=== PATIENT | male | born 1960 | race Caucasian/White ===

== ENCOUNTER → 2019-10-09 08:40 | Outpatient (BNVA) | payer OTHER, SELFPAY | PROVIDERS: Family Provider Family Medicine; PCP Family Medicine; Visit Provider Urology | DX: N40.0 Benign prostatic hyperplasia without lower urinary tract symptoms (principal); Z80.42 Family history of malignant neoplasm of prostate | CPT/HCPCS: 81001 ==

== ENCOUNTER 2022-02-15 08:19 | Outpatient (CLI) | payer OTHER, SELFPAY | END 2022-02-15 08:20 | disposition home or self-care (01) | PROVIDERS: PCP Family Medicine; Visit Provider Nurse Practitioner Family | DX: R10.9 Unspecified abdominal pain (principal) | CPT/HCPCS: 74018; 81003 ==

== ENCOUNTER 2022-03-17 09:30 | Outpatient (CLI) | payer OTHER, SELFPAY ==
[2022-03-17 10:13] LABS: PSA Screen - Urology 1.09 ng/mL (0-4)
== END 2022-03-17 09:31 | disposition home or self-care (01) ==
LOC: LAB 09:33
PROVIDERS: Nurse Practitioner Family; PCP Family Medicine; Visit Provider Urology
DX: Z12.5 Encounter for screening for malignant neoplasm of prostate (principal)
CPT/HCPCS: 36415; G0103

== ENCOUNTER → 2022-03-21 08:18 | Outpatient (BNVA) | payer OTHER, SELFPAY | PROVIDERS: PCP Family Medicine; Visit Provider Urology | DX: N40.1 Benign prostatic hyperplasia with lower urinary tract symptoms (principal); R35.1 Nocturia; N20.9 Urinary calculus, unspecified; M54.9 Dorsalgia, unspecified | CPT/HCPCS: 81003 ==

== ENCOUNTER 2022-09-22 08:08 | Outpatient (CLI) | payer OTHER, SELFPAY ==
--- NOTE | 2022-09-22 08:08 | XR_ITS ---
WS: [id number] Thoracic spine, 3 views, 09/22/2022 Clinical Data: pain Comparison: Thoracic spine, 09/21/2006. Findings: No compression fractures are seen. The disc heights are normal. There are osteophytes at all thoracic levels. The paravertebral regions are normal. XR/XR thoracic spine 3V* [id number] Impression: Moderate osteoarthritis of the thoracic vertebral bodies.
--- NOTE | 2022-09-22 08:08 | XR_ITS ---
WS: [email or web address] Lumbar spine, 3 views, 09/22/2022 Clinical Data: pain Comparison: Lateral lumbar spine views, 09/21/2006. Findings: No compression fractures or subluxation is seen. No disc space narrowing is seen. There is osteoarthr itic spurring of all the lumbar vertebral bodies. The transverse processes and SI joints are normal. XR/XR lumbar spine 2-3V* [id number] Impression: Moderate osteoarthritis of the lumbar vertebral bodies.
--- NOTE | 2022-09-22 08:08 | XR_ITS ---
WS: [email or web address] Cervical spine, 3 views, 09/22/2022 Clinical Data: pain Comparison: None. Findings: No compression fractures are seen. There is disc space narrowing at C6-C7. There is anterio r osteoarthritic spurring from C4 through C7. There is no prevertebral soft tissue swelling. The odon toid is unremarkable. The soft tissues of the neck and the lung apices are normal. XR/XR cervical spine 3V* [id number] Impression: Osteoarthritis C4-C7 disc space narrowing at C6-C7.
--- NOTE | 2022-09-22 08:08 | XR_ITS ---
WS: [email or web address] Left knee, AP and lateral views, 09/22/2022 Clinical Data: pain Comparison: None. Findings: No fractures or dislocations are seen. There is minimal medial joint compartment narrowing. The martinez la shows superior spurring. The soft tissues are unremarkable. XR/XR knee LT 1-2V [id number] Impression: Minimal osteoarthritis of the left knee Kellgren-Everardo Classification: grade 1 (doubtful): doubtful joint space narr owing and possible osteophytic lipping
--- NOTE | 2022-09-22 08:18 | XR_ITS ---
WS: [email or web address] Right knee, AP and lateral views, 09/22/2022 Clinical Data: PAIN Comparison: None. Findings: No fractures or dislocations are seen. There is mild narrowing of the medial joint compartment. The p atella shows minimal spurring.. The soft tissues are unremarkable. XR/XR knee RT 1-2V [id number] Impression: Minimal medial joint compartment narrowing and patellar spurring of the right k nee. Kellgren-Everardo Classification: grade 1 (doubtful): doubtful joint space narr owing and possible osteophytic lipping
== END 2022-09-22 08:09 | disposition home or self-care (01) ==
PROVIDERS: PCP Family Medicine; Visit Provider Family Medicine
DX: M25.561 Pain in right knee (principal); M47.814 Spondylosis without myelopathy or radiculopathy, thoracic region; M47.816 Spondylosis without myelopathy or radiculopathy, lumbar region; M47.812 Spondylosis without myelopathy or radiculopathy, cervical region; M17.12 Unilateral primary osteoarthritis, left knee
CPT/HCPCS: 72040; 72072; 72100; 73560

== ENCOUNTER → 2022-12-12 11:43 | Outpatient (BNVA) | payer OTHER, SELFPAY | PROVIDERS: PCP Family Medicine; Visit Provider Family Medicine | DX: M19.90 Unspecified osteoarthritis, unspecified site (principal) | CPT/HCPCS: 80053; 85025; 85651; 86140; 86160; 86162; 86235; 86255; 86376; 86431 ==

== ENCOUNTER → 2023-03-15 12:42 | Outpatient (BNVA) | payer OTHER, SELFPAY | PROVIDERS: PCP Family Medicine; Visit Provider Family Medicine | DX: E03.9 Hypothyroidism, unspecified (principal); R00.0 Tachycardia, unspecified; R53.83 Other fatigue; R76.8 Other specified abnormal immunological findings in serum; M19.90 Unspecified osteoarthritis, unspecified site | CPT/HCPCS: 80053; 84443; 85025; 85651; 86140 ==

== ENCOUNTER → 2023-03-22 11:52 | Outpatient (BNVA) | payer OTHER, SELFPAY | PROVIDERS: PCP Family Medicine; Visit Provider Family Medicine | DX: D64.9 Anemia, unspecified (principal) | CPT/HCPCS: 82728; 83540; 83550; 85045 ==

== ENCOUNTER → 2023-04-26 08:55 | Outpatient (BNVA) | payer OTHER, SELFPAY | PROVIDERS: PCP Family Medicine; Visit Provider Internal Medicine Rheumatology | DX: R76.8 Other specified abnormal immunological findings in serum (principal); Z79.899 Other long term (current) drug therapy; M19.90 Unspecified osteoarthritis, unspecified site; Z11.59 Encounter for screening for other viral diseases; Z11.1 Encounter for screening for respiratory tuberculosis; R53.83 Other fatigue; D50.9 Iron deficiency anemia, unspecified; Z79.52 Long term (current) use of systemic steroids | CPT/HCPCS: 36415; 80076; 82306; 82565; 82728; 83010; 83615; 85025; 85651; 86023; 86140; 86160; 86200; 86480; 86704; 86803; 87340; 99204 ==

== ENCOUNTER → 2023-06-27 12:54 | Outpatient (BNVA) | payer OTHER, SELFPAY | PROVIDERS: PCP Family Medicine; Visit Provider Internal Medicine Rheumatology | DX: D50.9 Iron deficiency anemia, unspecified (principal); M19.90 Unspecified osteoarthritis, unspecified site; Z79.899 Other long term (current) drug therapy; M47.812 Spondylosis without myelopathy or radiculopathy, cervical region; M47.816 Spondylosis without myelopathy or radiculopathy, lumbar region; R76.8 Other specified abnormal immunological findings in serum; R53.83 Other fatigue | CPT/HCPCS: 99214 ==

== ENCOUNTER 2023-12-04 14:13 | Outpatient (CLI) | payer OTHER, SELFPAY ==
[2023-12-04 14:52] LABS: Basophils % 0.1 %; Eosinophils % 0.4 %; Hematocrit 38.1 % (37-53); Lymphocytes # 0.8 10^3/uL (0.8-4.8); Lymphocytes % 11.1 %; Mean Corpuscular Hemoglobin 27.2 pg (27-33); Mean Corpuscular Volume 87.8 fl (82-101); Mean Platelet Volume 9.4 fL (7.4-10.4); Monocytes # 0.3 10^3/uL (0.2-0.9); Monocytes % 3.6 %; Neutrophils # 5.93 10^3/uL (1.8-7.7); Neutrophils % 84.5 %; Nucleated Red Blood Cells % 0 %; Platelet Count 302 10^3/cmm (157-399); Red Blood Count 4.34 10^6/uL (3.85-5.65); Red Cell Distribution Width 13.2 % (12.1-15.1); White Blood Count 7.02 10^3/uL (3.29-11.43)
[2023-12-04 15:32] LABS: Carcinoembryonic Antigen 1.1 ng/mL (0.0-4.7)
[2023-12-04 15:44] LABS: Alanine Aminotransferase 12 U/L (0-41); Albumin Level 3.9 g/dL (3.5-5.2); Alkaline Phosphatase 74 U/L (40-130); Aspartate Amino Transferase 15 U/L (0-40); Blood Urea Nitrogen 24 mg/dL (8-23); Calcium 8.8 mg/dL (8.5-10.5); Carbon Dioxide 23 mmol/L (22-29); Chloride 109 mmol/L (98-107); Globulin 2.4 g/dL (1.3-4.6); Glomerular Filtration Rate 85.2 mL/min (90-130); Glucose 147 mg/dL (65-115); Osmolality Calculated 303 mOsm/kg (285-295); Sodium 143 mmol/L (136-145); Total Bilirubin 0.4 mg/dL (0.15-1.2); Total Protein 6.3 g/dL (6.6-8.7)
[2023-12-04 16:37] LABS: Anion Gap 14.8 (5-19); Potassium 3.8 mmol/L (3.5-5.1)
== END 2023-12-04 14:14 | disposition home or self-care (01) ==
LOC: LAB 14:16
PROVIDERS: PCP Family Medicine; Visit Provider Internal Medicine
DX: C18.2 Malignant neoplasm of ascending colon (principal)
CPT/HCPCS: 36415; 80053; 82378; 85025

== ENCOUNTER 2024-03-11 12:58 | Outpatient (CLI) | payer OTHER, SELFPAY ==
--- NOTE | 2024-03-11 13:30 | PETR_ITS ---
PROCEDURE INFORMATION: Exam: PET/CT Skull Base to Mid-thigh Exam date and time: 03/11/2024 1:51 PM Age: 64 years old Clinical indication: Condition or disease; Prior surgery; Surgery date: 6+ months; Surgery type: Colon appy; Additional info: Colon cancer; Pulmonary nodules LABS AND CLINICAL REPORTS: Glucose: 70 mg/dl Treatment strategy for malignancy (PET staging): Initial Staging (PI) TECHNIQUE: Imaging protocol: Following at least four-hour fasting and following the injection of radiopharmaceutical, low dose CT images were obtained. Then, PET images were obtained. Attenuation corrected images were constructed using the CT scan. Fused images of PET and CT were reviewed. The standardized uptake values (SUV) reported below are maximum values within a region of interest, expressed in gm/ml. Exam includes orbital meatal line to mid-thigh. Radiopharmaceutical: 13.1 mCi F-18 FDG (Fluorodeoxyglucose), IV. Time of imaging post radiopharmaceutical administration: 58 minutes Injection site: Left antecubital COMPARISON: 1. CT kidney stone [id number] 06/18/2017 12:[address] chest w con* [id number] 03/04/2024 8:45 AM FINDINGS: Tubes, catheters and devices: Right chest port terminates at the superior cavoatrial junction. Brain: Visualized brain has normal physiologic uptake. Paranasal sinuses: Near complete opacification of the right maxillary sinus with FDG uptake showing SUV max of 4.1. Pharynx: No abnormal uptake. Larynx: No abnormal uptake. Lungs, pleura and trachea: Redemonstrated bilateral solid noncalcified pulmonary nodules, to include basal right lower lobe nodule averaging 12 mm (SUV max of 2.0) and basal left lower lobe nodule averaging 10 mm (SUV max of 1.6) as well as stable area of non FDG avid left upper lobe tree-in-bud nodularity. Bilateral calcified granulomata. No consolidation, masses, or pleural effusion. Heart: Normal physiologic uptake. Mediastinal space: No abnormal uptake. Liver: No abnormal uptake. Gallbladder and biliary ducts: No abnormal uptake. Pancreas: No abnormal uptake. Spleen: No abnormal uptake. Adrenal glands: No abnormal uptake. Kidneys and ureters: Normal physiologic uptake. Photopenic fluid density left renal cyst. Stomach and bowel: Partial right colectomy with mild relative thickening and mild stranding at the remaining right colon. Diffuse FDG uptake along the colon without discrete mass on CT, greatest of the remaining right colon. Reproductive: Homogeneous right testicular FDG uptake showing SUV max of 4.[address] abnormality. Asymmetrically small non FDG avid soft tissue density at the left scrotum. Mild prostatomegaly. Vasculature: No abnormal uptake. Lymph nodes: Right retrocrural lymph node measuring 5 mm in the short axis shows low-level FDG uptake showing SUV max of 2.9, previously 2 mm in the short axis in June 2017. Calcified mediastinal and bilateral hilar lymph nodes in keeping with sequela of old granulomatous disease. Skeleton: Degenerative changes along the spine. Low-level uptake at the right acromioclavicular joint in keeping with underlying mild degenerative change on CT. Soft tissues: No abnormal uptake in the visualized head, neck, chest, abdomen, pelvis, and extremities. Left teres major intramuscular lipoma. Anterior abdominal wall postsurgical change. Small fat containing right inguinal hernia. PET/PET skull to thigh INIT [id number] IMPRESSION: 1. Partial right colectomy with mild relative thickening, adjacent stranding, and colonic FDG uptake greatest at the remaining right colon possibly representing postsurgical change. Infectious, inflammatory or neoplastic process not entirely excluded. Correlate with clinical findings and surgical history. 2. Diffuse colonic FDG uptake greatest at the right colon. Query metformin use. 3. Bilateral pulmonary nodules averaging 12 mm at the basal right lower lobe and 10 mm at the basal left lower lobe show very low-level FDG uptake. These are nonspecific, but could represent metastases. 4. Low-level FDG uptake at subcentimeter right retrocrural lymph node increased in size compared to 2017 also raises possibility of metastasis. 5. Infectious/inflammatory right maxillary sinusitis. 6. Homogeneous right testicular FDG uptake may be physiologic with asymmetrically small non FDG avid soft tissue density in the left scrotum possibly representing atrophy. Right orchitis could appear similar. Correlate with clinical history and exam, and consideration for scrotal ultrasound as indicated.
== END 2024-03-11 12:59 | disposition home or self-care (01) ==
PROVIDERS: PCP Family Medicine; Visit Provider Internal Medicine Medical Oncology
DX: C18.2 Malignant neoplasm of ascending colon (principal); J84.10 Pulmonary fibrosis, unspecified; R93.3 Abnormal findings on diagnostic imaging of other parts of digestive tract; R93.811 Abnormal radiologic findings on diagnostic imaging of right testicle; D17.22 Benign lipomatous neoplasm of skin and subcutaneous tissue of left arm; J01.00 Acute maxillary sinusitis, unspecified; K40.90 Unilateral inguinal hernia, without obstruction or gangrene, not specified as recurrent; Z95.828 Presence of other vascular implants and grafts; Z90.49 Acquired absence of other specified parts of digestive tract
CPT/HCPCS: 78815; A9552

== ENCOUNTER 2024-03-14 11:00 | Oncology outpatient (recurring) (ONCR) | payer OTHER, SELFPAY ==
--- NOTE | 2024-03-04 08:00 | CT_ITS ---
WS: [email or web address] CT chest w con* [id number] HISTORY: colon cancer TECHNIQUE: Axial imaging performed through the thorax. Coronal and sagittal reformats are submitted. [facility] use at least one of these dose optimization techniques: automated exposure control; mA and/or kV adjustment per patient size (includes targeted exams where dose is mat ched to clinical indication); or iterative reconstruction. CONTRAST: Omnipaque 350; 100 mL IV. DLP: 617.95 mGy.cm COMPARISON: CT of the lung bases 06/18/2017 Lungs and central airway: Bilateral noncalcified pulmonary nodules are identified. The largest nodule s are at the lung bases. RIGHT lower lobe pulmonary nodule measures 12 mm. 10 mm noncalcified nodule in the anterior LEFT lower lobe. There are a few additional smaller scattered nodules throughout both lungs. There is a pulmonary nodule measuring 9 mm in the medial LEFT infrahilar region, image 39 of series 4. Pleura: Normal. No pleural effusion. Heart and pericardium: Normal size heart with no pericardial effusion. Mediastinum and gaurang: Small mediastinal and hilar lymph nodes. No definite adenopathy identified. Vessels: Mild atherosclerosis aorta. Normal size pulmonary artery. Chest wall and lower neck: No soft tissue masses. Benign intramuscular lipoma is noted in the soft ti ssues of the LEFT shoulder. Upper abdomen: Mild hepatic steatosis. No metastatic lesions within the liver. No adrenal mass. Osseous structures: Mild increase in thoracic kyphosis. CT/CT chest w con* [id number] IMPRESSION: 1. Bilateral pulmonary nodules. The largest nodule is 12 mm in the RIGHT lower lobe. There are additional scattered pulmonary nodules as described above. Met astatic disease is not excluded. These nodules were not present at the lung bas es in 2017. Consider follow-up PET/CT imaging or 3-month chest CT follow-up wit h IV contrast. 2. No adenopathy. 3. No metastatic disease visualized within the liver or adrenal glands.
[2024-03-04 08:22] LABS: Blood Urea Nitrogen 29 mg/dL (8-23); Glomerular Filtration Rate 67.4 mL/min (90-130)
[2024-03-04] MEDS: iohexol 350 mg/mL 500 mL Btl (per mL) IV (08:56)
[2024-03-12 09:29] LABS: Basophils % 0.4 %; Eosinophils # 0.2 10^3/uL (0.0-0.8); Eosinophils % 1.8 %; Hematocrit 47.6 % (37-53); Lymphocytes # 1.6 10^3/uL (0.8-4.8); Mean Corpuscular HGB Conc 31.3 g/dL (30-55); Mean Corpuscular Hemoglobin 26.9 pg (27-33); Mean Corpuscular Volume 85.9 fl (82-101); Mean Platelet Volume 9.8 fL (7.4-10.4); Monocytes # 0.7 10^3/uL (0.2-0.9); Monocytes % 8.5 %; Neutrophils # 5.61 10^3/uL (1.8-7.7); Neutrophils % 68.9 %; Nucleated Red Blood Cells % 0 %; Platelet Count 258 10^3/cmm (157-399); Red Blood Count 5.54 10^6/uL (3.85-5.65); Red Cell Distribution Width 16.9 % (12.1-15.1); White Blood Count 8.14 10^3/uL (3.29-11.43)
[2024-03-12 09:55] LABS: Carcinoembryonic Antigen 1.4 ng/mL (0.0-4.7)
[2024-03-12 10:07] LABS: Alanine Aminotransferase 13 U/L (0-41); Albumin Level 4.1 g/dL (3.5-5.2); Alkaline Phosphatase 86 U/L (40-130); Aspartate Amino Transferase 12 U/L (0-40); Blood Urea Nitrogen 33 mg/dL (8-23); Carbon Dioxide 23 mmol/L (22-29); Chloride 105 mmol/L (98-107); Globulin 2.7 g/dL (1.3-4.6); Glucose 100 mg/dL (65-115); Osmolality Calculated 299 mOsm/kg (285-295); Sodium 141 mmol/L (136-145); Total Bilirubin 0.3 mg/dL (0.15-1.2); Total Protein 6.8 g/dL (6.6-8.7)
[2024-03-12 10:09] LABS: Anion Gap 17.2 (5-19); Potassium 4.2 mmol/L (3.5-5.1)
[2024-03-12 11:00] LABS: Iron 220 ug/dL (59-158); Percent Saturation 78.5 % (20-50); Total Iron Binding Capacity 280 mcg/dl; Unsaturated Iron Binding 60 ug/dL (112-347)
[2024-03-12] MEDS: dextrose 5% 250 ML 75 ML IV (11:13)
[2024-03-12] MEDS: palonosetron 0.25 mg/5 mL SDV IVP (11:16)
[2024-03-12] MEDS: dexamethasone 4 mg/mL INJ 5 mL 12 MG IVP (11:19)
[2024-03-12] MEDS: LEUCOVORIN IV (12:03)
[2024-03-12] MEDS: OXALIPLATIN IV (12:03)
[2024-03-12] MEDS: DEXTROSE 5% IV ×2 (12:03)
[2024-03-12] MEDS: FLUOROURACIL IV (14:44)
[2024-03-12] MEDS: SODIUM CHLORIDE IV (14:44)
[2024-03-12] MEDS: ELASTOMERIC PUMP PUMP IV (14:44)
[2024-03-12 14:53] VITALS: BP 156/79; PULSE 70; TEMP 36.2; O2SAT 93
[2024-03-14 11:02] VITALS: BP 151/80; PULSE 64; RESP 18; TEMP 36.7; O2SAT 95
== END 2024-03-16 23:59 | disposition home or self-care (01) ==
PROVIDERS: PCP Family Medicine; Visit Provider Internal Medicine Medical Oncology
DX: Z45.1 Encounter for adjustment and management of infusion pump (principal); Z53.9 Procedure and treatment not carried out, unspecified reason
CPT/HCPCS: 71260; 80053; 82378; 82565; 83540; 83550; 84520; 85025; 96368; 96375; 96413; 96415; 96416; 96523; J0640; J1100; J2469; J7060; J9190; J9263; Q9967

== ENCOUNTER 2024-04-11 10:10 | Oncology outpatient (recurring) (ONCR) | payer OTHER, SELFPAY ==
[2024-03-19 14:39] LABS: Basophils % 0.4 %; Eosinophils # 0.1 10^3/uL (0.0-0.8); Eosinophils % 1.4 %; Hematocrit 45.6 % (37-53); Lymphocytes # 0.9 10^3/uL (0.8-4.8); Lymphocytes % 16.7 %; Mean Corpuscular HGB Conc 32.5 g/dL (30-55); Mean Corpuscular Hemoglobin 27.8 pg (27-33); Mean Corpuscular Volume 85.6 fl (82-101); Mean Platelet Volume 9.5 fL (7.4-10.4); Monocytes # 0.3 10^3/uL (0.2-0.9); Monocytes % 5.3 %; Neutrophils # 3.87 10^3/uL (1.8-7.7); Nucleated Red Blood Cells % 0 %; Platelet Count 213 10^3/cmm (157-399); Red Blood Count 5.33 10^6/uL (3.85-5.65); Red Cell Distribution Width 16.4 % (12.1-15.1); White Blood Count 5.09 10^3/uL (3.29-11.43)
[2024-03-19 14:47] LABS: Alanine Aminotransferase 39 U/L (0-41); Alkaline Phosphatase 81 U/L (40-130); Aspartate Amino Transferase 19 U/L (0-40); Blood Urea Nitrogen 30 mg/dL (8-23); Calcium 9.1 mg/dL (8.5-10.5); Carbon Dioxide 26 mmol/L (22-29); Chloride 106 mmol/L (98-107); Globulin 2.7 g/dL (1.3-4.6); Glomerular Filtration Rate 67.4 mL/min (90-130); Glucose 117 mg/dL (65-115); Osmolality Calculated 301 mOsm/kg (285-295); Sodium 142 mmol/L (136-145); Total Bilirubin 0.3 mg/dL (0.15-1.2); Total Protein 6.7 g/dL (6.6-8.7)
[2024-03-19 14:49] LABS: Anion Gap 14.2 (5-19); Potassium 4.2 mmol/L (3.5-5.1)
[2024-03-26 08:47] LABS: Basophils % 0.4 %; Eosinophils # 0.2 10^3/uL (0.0-0.8); Eosinophils % 3.1 %; Hematocrit 45.4 % (37-53); Lymphocytes # 1.6 10^3/uL (0.8-4.8); Lymphocytes % 32.9 %; Mean Corpuscular HGB Conc 31.7 g/dL (30-55); Mean Corpuscular Hemoglobin 27.3 pg (27-33); Mean Corpuscular Volume 86.1 fl (82-101); Mean Platelet Volume 9.4 fL (7.4-10.4); Monocytes # 0.4 10^3/uL (0.2-0.9); Monocytes % 8.3 %; Neutrophils # 2.64 10^3/uL (1.8-7.7); Neutrophils % 55.1 %; Nucleated Red Blood Cells % 0 %; Platelet Count 185 10^3/cmm (157-399); Red Blood Count 5.27 10^6/uL (3.85-5.65); Red Cell Distribution Width 17.2 % (12.1-15.1)
[2024-03-26 09:10] LABS: Alanine Aminotransferase 20 U/L (0-41); Albumin Level 3.9 g/dL (3.5-5.2); Alkaline Phosphatase 75 U/L (40-130); Blood Urea Nitrogen 33 mg/dL (8-23); Calcium 8.6 mg/dL (8.5-10.5); Carbon Dioxide 25 mmol/L (22-29); Chloride 106 mmol/L (98-107); Globulin 2.4 g/dL (1.3-4.6); Glomerular Filtration Rate 75.2 mL/min (90-130); Glucose 113 mg/dL (65-115); Osmolality Calculated 302 mOsm/kg (285-295); Sodium 142 mmol/L (136-145); Total Bilirubin 0.3 mg/dL (0.15-1.2); Total Protein 6.3 g/dL (6.6-8.7)
[2024-03-26 09:47] LABS: Anion Gap 14.7 (5-19); Aspartate Amino Transferase 20 U/L (0-40); Potassium 3.7 mmol/L (3.5-5.1)
[2024-03-26] MEDS: dextrose 5% 250 ML 35 ML IV (10:58)
[2024-03-26] MEDS: palonosetron 0.25 mg/5 mL SDV IVP (11:00)
[2024-03-26] MEDS: dexamethasone 4 mg/mL INJ 5 mL 12 MG IV (11:08)
[2024-03-26] MEDS: LEUCOVORIN IV (11:58)
[2024-03-26] MEDS: DEXTROSE 5% IV ×2 (11:58→11:59)
[2024-03-26] MEDS: OXALIPLATIN IV (11:59)
[2024-03-26 14:31] VITALS: BP 163/84; PULSE 66; TEMP 36.2
[2024-03-26] MEDS: ELASTOMERIC PUMP PUMP IV (14:39)
[2024-03-26] MEDS: FLUOROURACIL IV (14:39)
[2024-03-26] MEDS: SODIUM CHLORIDE IV (14:39)
[2024-03-28 11:00] VITALS: BP 156/89; PULSE 57; RESP 16; TEMP 36.7; O2SAT 94
[2024-04-09 10:27] LABS: Basophils % 0.3 %; Eosinophils # 0.1 10^3/uL (0.0-0.8); Eosinophils % 1.9 %; Hematocrit 44.3 % (37-53); Lymphocytes # 1.3 10^3/uL (0.8-4.8); Lymphocytes % 22.7 %; Mean Corpuscular HGB Conc 32.5 g/dL (30-55); Mean Corpuscular Hemoglobin 27.7 pg (27-33); Mean Corpuscular Volume 85.2 fl (82-101); Mean Platelet Volume 9.7 fL (7.4-10.4); Monocytes # 0.7 10^3/uL (0.2-0.9); Monocytes % 11.1 %; Neutrophils # 3.74 10^3/uL (1.8-7.7); Neutrophils % 63.8 %; Nucleated Red Blood Cells % 0 %; Platelet Count 181 10^3/cmm (157-399); Red Cell Distribution Width 17.1 % (12.1-15.1); White Blood Count 5.86 10^3/uL (3.29-11.43)
[2024-04-09 10:40] LABS: Alanine Aminotransferase 21 U/L (0-41); Albumin Level 3.7 g/dL (3.5-5.2); Alkaline Phosphatase 76 U/L (40-130); Anion Gap 13.7 (5-19); Aspartate Amino Transferase 15 U/L (0-40); Blood Urea Nitrogen 24 mg/dL (8-23); Calcium 8.5 mg/dL (8.5-10.5); Carbon Dioxide 25 mmol/L (22-29); Chloride 108 mmol/L (98-107); Creatinine Clr Calc Pharmacy 95.4936; Globulin 2.5 g/dL (1.3-4.6); Glomerular Filtration Rate 75.2 mL/min (90-130); Glucose 117 mg/dL (65-115); Osmolality Calculated 301 mOsm/kg (285-295); Potassium 3.7 mmol/L (3.5-5.1); Sodium 143 mmol/L (136-145); Total Bilirubin 0.4 mg/dL (0.15-1.2); Total Protein 6.2 g/dL (6.6-8.7)
[2024-04-09 11:45] VITALS: BP 165/79; PULSE 61; RESP 16; TEMP 36.4; O2SAT 92
[2024-04-09] MEDS: dextrose 5% 250 ML 75 ML IV (11:47)
[2024-04-09] MEDS: palonosetron 0.25 mg/5 mL SDV IVP (11:47)
[2024-04-09] MEDS: dexamethasone 4 mg/mL INJ 5 mL 12 MG IV (11:48)
[2024-04-09] MEDS: sodium chloride 0.9% 500 ML 999 ML IV (12:24)
[2024-04-09] MEDS: DEXTROSE 5% IV ×2 (13:10→13:11)
[2024-04-09] MEDS: LEUCOVORIN IV (13:10)
[2024-04-09] MEDS: OXALIPLATIN IV (13:11)
[2024-04-09 15:20] VITALS: BP 172/92; PULSE 63; RESP 16; TEMP 36.1; O2SAT 95
[2024-04-09] MEDS: FLUOROURACIL IV (15:27)
[2024-04-09] MEDS: SODIUM CHLORIDE IV (15:27)
[2024-04-09] MEDS: ELASTOMERIC PUMP PUMP IV (15:27)
[2024-04-11 10:18] VITALS: BP 151/79; PULSE 86; RESP 16; TEMP 36.5; O2SAT 95
[2024-04-11] MEDS: sodium chloride 0.9% 1,000 ML 999 ML IV (10:41)
[2024-04-11 12:00] VITALS: BP 132/76; PULSE 80; RESP 16; TEMP 36.5; O2SAT 96
== END 2024-04-16 23:59 | disposition home or self-care (01) ==
PROVIDERS: Nurse Practitioner Family; PCP Family Medicine; Visit Provider Internal Medicine Medical Oncology
DX: Z53.9 Procedure and treatment not carried out, unspecified reason (principal); Z45.1 Encounter for adjustment and management of infusion pump
CPT/HCPCS: 36591; 80053; 85025; 96360; 96368; 96375; 96413; 96415; 96416; 96523; J0640; J1100; J2469; J7030; J7040; J7060; J9190; J9263

== ENCOUNTER 2024-05-09 11:15 | Oncology outpatient (recurring) (ONCR) | payer OTHER, SELFPAY ==
[2024-04-23 09:05] LABS: Basophils % 0.4 %; Eosinophils # 0.1 10^3/uL (0.0-0.8); Eosinophils % 1.7 %; Hematocrit 43.5 % (37-53); Lymphocytes # 1.4 10^3/uL (0.8-4.8); Lymphocytes % 26.5 %; Mean Corpuscular HGB Conc 33.1 g/dL (30-55); Mean Corpuscular Hemoglobin 28.3 pg (27-33); Mean Corpuscular Volume 85.5 fl (82-101); Mean Platelet Volume 9.1 fL (7.4-10.4); Monocytes # 0.6 10^3/uL (0.2-0.9); Monocytes % 11.7 %; Neutrophils # 3.13 10^3/uL (1.8-7.7); Neutrophils % 59.3 %; Nucleated Red Blood Cells % 0 %; Platelet Count 160 10^3/cmm (157-399); Red Blood Count 5.09 10^6/uL (3.85-5.65); Red Cell Distribution Width 17.9 % (12.1-15.1); White Blood Count 5.28 10^3/uL (3.29-11.43)
[2024-04-23 09:33] LABS: Carcinoembryonic Antigen 1.7 ng/mL (0.0-4.7)
[2024-04-23 09:44] LABS: Alanine Aminotransferase 23 U/L (0-41); Albumin Level 3.8 g/dL (3.5-5.2); Alkaline Phosphatase 72 U/L (40-130); Anion Gap 14.4 (5-19); Aspartate Amino Transferase 18 U/L (0-40); Blood Urea Nitrogen 22 mg/dL (8-23); Calcium 8.7 mg/dL (8.5-10.5); Carbon Dioxide 25 mmol/L (22-29); Chloride 110 mmol/L (98-107); Globulin 2.2 g/dL (1.3-4.6); Glomerular Filtration Rate 67.4 mL/min (90-130); Glucose 108 mg/dL (65-115); Osmolality Calculated 306 mOsm/kg (285-295); Potassium 3.4 mmol/L (3.5-5.1); Sodium 146 mmol/L (136-145); Total Bilirubin 0.4 mg/dL (0.15-1.2)
[2024-04-23 10:40] VITALS: BP 168/87; PULSE 56; RESP 16; TEMP 36.4; O2SAT 96
[2024-04-23] MEDS: dextrose 5% 250 ML 75 ML IV (10:48)
[2024-04-23] MEDS: palonosetron 0.25 mg/5 mL SDV IVP (10:49)
[2024-04-23] MEDS: dexamethasone 4 mg/mL INJ 5 mL 12 MG IVP (10:51)
[2024-04-23] MEDS: leucovorin 920 MG in dextrose 5% 250 ML 520 MG IV (11:18)
[2024-04-23] MEDS: ELASTOMERIC PUMP PUMP IV (12:01)
[2024-04-23] MEDS: FLUOROURACIL IV (12:01)
[2024-04-23] MEDS: SODIUM CHLORIDE IV (12:01)
[2024-04-23 12:34] VITALS: BP 173/91; PULSE 65; RESP 16; TEMP 36; O2SAT 96
[2024-04-25 10:12] VITALS: BP 159/84; PULSE 63; RESP 18; TEMP 36.4; O2SAT 95
[2024-05-07 11:25] LABS: Basophils % 0.3 %; Eosinophils # 0.1 10^3/uL (0.0-0.8); Hematocrit 45.7 % (37-53); Lymphocytes # 1.3 10^3/uL (0.8-4.8); Lymphocytes % 20.4 %; Mean Corpuscular HGB Conc 33.3 g/dL (30-55); Mean Corpuscular Hemoglobin 29.2 pg (27-33); Mean Corpuscular Volume 87.7 fl (82-101); Mean Platelet Volume 9.5 fL (7.4-10.4); Monocytes # 0.7 10^3/uL (0.2-0.9); Monocytes % 11.5 %; Neutrophils # 4.17 10^3/uL (1.8-7.7); Neutrophils % 65.2 %; Nucleated Red Blood Cells % 0 %; Platelet Count 170 10^3/cmm (157-399); Red Blood Count 5.21 10^6/uL (3.85-5.65); Red Cell Distribution Width 19.5 % (12.1-15.1); White Blood Count 6.41 10^3/uL (3.29-11.43)
[2024-05-07 11:53] LABS: Carcinoembryonic Antigen 1.7 ng/mL (0.0-4.7)
[2024-05-07 12:04] LABS: Alanine Aminotransferase 24 U/L (0-41); Albumin Level 3.8 g/dL (3.5-5.2); Alkaline Phosphatase 80 U/L (40-130); Aspartate Amino Transferase 17 U/L (0-40); Blood Urea Nitrogen 29 mg/dL (8-23); Calcium 8.8 mg/dL (8.5-10.5); Carbon Dioxide 25 mmol/L (22-29); Chloride 108 mmol/L (98-107); Creatinine Clr Calc Pharmacy 86.2903; Globulin 2.4 g/dL (1.3-4.6); Glomerular Filtration Rate 67.4 mL/min (90-130); Glucose 96 mg/dL (65-115); Osmolality Calculated 306 mOsm/kg (285-295); Sodium 145 mmol/L (136-145); Total Bilirubin 0.5 mg/dL (0.15-1.2); Total Protein 6.2 g/dL (6.6-8.7)
[2024-05-07] MEDS: dextrose 5% 250 ML 75 ML IV (12:57)
[2024-05-07] MEDS: palonosetron 0.25 mg/5 mL SDV IVP (12:57)
[2024-05-07] MEDS: dexamethasone 4 mg/mL INJ 5 mL 12 MG IVP (13:00)
[2024-05-07] MEDS: DEXTROSE 5% IV (13:43)
[2024-05-07] MEDS: leucovorin 920 MG in dextrose 5% 250 ML 62.5 MG IV (13:43)
[2024-05-07] MEDS: OXALIPLATIN IV (13:43)
[2024-05-07 15:56] VITALS: BP 167/84; PULSE 71; RESP 16; TEMP 36.6; O2SAT 97
[2024-05-07] MEDS: FLUOROURACIL IV (15:56)
[2024-05-07] MEDS: ELASTOMERIC PUMP PUMP IV (15:56)
[2024-05-07] MEDS: SODIUM CHLORIDE IV (15:56)
[2024-05-09 11:10] VITALS: BP 132/76; PULSE 64; RESP 16; TEMP 36.6; O2SAT 96
== END 2024-05-17 23:59 | disposition home or self-care (01) ==
PROVIDERS: Nurse Practitioner Family; PCP Family Medicine; Visit Provider Internal Medicine Medical Oncology
DX: Z45.1 Encounter for adjustment and management of infusion pump (principal); Z53.9 Procedure and treatment not carried out, unspecified reason
CPT/HCPCS: 80053; 82378; 85025; 96365; 96368; 96375; 96413; 96415; 96523; J0640; J1100; J2469; J7060; J9190; J9263

== ENCOUNTER 2024-06-06 11:00 | Oncology outpatient (recurring) (ONCR) | payer OTHER, SELFPAY ==
[2024-05-21 10:54] LABS: Basophils % 0.5 %; Eosinophils # 0.1 10^3/uL (0.0-0.8); Eosinophils % 1.8 %; Hematocrit 45.3 % (37-53); Lymphocytes # 1.1 10^3/uL (0.8-4.8); Lymphocytes % 18.6 %; Mean Corpuscular HGB Conc 33.6 g/dL (30-55); Mean Corpuscular Hemoglobin 29.6 pg (27-33); Mean Corpuscular Volume 88.3 fl (82-101); Mean Platelet Volume 9.2 fL (7.4-10.4); Monocytes # 0.4 10^3/uL (0.2-0.9); Monocytes % 6.1 %; Neutrophils # 4.15 10^3/uL (1.8-7.7); Neutrophils % 72.6 %; Nucleated Red Blood Cells % 0 %; Platelet Count 194 10^3/cmm (157-399); Red Blood Count 5.13 10^6/uL (3.85-5.65); Red Cell Distribution Width 19.2 % (12.1-15.1); White Blood Count 5.71 10^3/uL (3.29-11.43)
[2024-05-21 11:14] LABS: Alanine Aminotransferase 21 U/L (0-41); Albumin Level 3.9 g/dL (3.5-5.2); Alkaline Phosphatase 76 U/L (40-130); Aspartate Amino Transferase 17 U/L (0-40); Blood Urea Nitrogen 31 mg/dL (8-23); Calcium 8.8 mg/dL (8.5-10.5); Carbon Dioxide 27 mmol/L (22-29); Chloride 108 mmol/L (98-107); Globulin 2.3 g/dL (1.3-4.6); Glomerular Filtration Rate 75.2 mL/min (90-130); Glucose 139 mg/dL (65-115); Osmolality Calculated 307 mOsm/kg (285-295); Sodium 144 mmol/L (136-145); Total Bilirubin 0.4 mg/dL (0.15-1.2); Total Protein 6.2 g/dL (6.6-8.7)
[2024-05-21 11:17] LABS: Anion Gap 12.8 (5-19); Potassium 3.8 mmol/L (3.5-5.1)
[2024-05-21] MEDS: dextrose 5% 250 ML 75 ML IV (12:12)
[2024-05-21] MEDS: palonosetron 0.25 mg/5 mL SDV IVP (12:12)
[2024-05-21] MEDS: dexamethasone 4 mg/mL INJ 5 mL 12 MG IV (12:14)
[2024-05-21] MEDS: leucovorin 920 MG in dextrose 5% 250 ML 62.5 MG IV (12:39)
[2024-05-21] MEDS: DEXTROSE 5% IV (12:40)
[2024-05-21] MEDS: OXALIPLATIN IV (12:40)
[2024-05-21 14:45] VITALS: BP 153/92; PULSE 65; RESP 17; TEMP 36.6; O2SAT 97
[2024-05-21] MEDS: ELASTOMERIC PUMP PUMP IV (14:55)
[2024-05-21] MEDS: FLUOROURACIL IV (14:55)
[2024-05-21] MEDS: SODIUM CHLORIDE IV (14:55)
[2024-05-23 11:07] VITALS: BP 133/73; PULSE 65; RESP 17; TEMP 35.9; O2SAT 95
[2024-06-04 09:03] LABS: Basophils % 0.3 %; Eosinophils # 0.1 10^3/uL (0.0-0.8); Hematocrit 44.7 % (37-53); Lymphocytes # 1.5 10^3/uL (0.8-4.8); Lymphocytes % 23.9 %; Mean Corpuscular HGB Conc 34.2 g/dL (30-55); Mean Corpuscular Volume 90.5 fl (82-101); Mean Platelet Volume 9.1 fL (7.4-10.4); Monocytes # 0.7 10^3/uL (0.2-0.9); Monocytes % 11.3 %; Nucleated Red Blood Cells % 0 %; Platelet Count 156 10^3/cmm (157-399); Red Blood Count 4.94 10^6/uL (3.85-5.65); Red Cell Distribution Width 18.7 % (12.1-15.1); White Blood Count 6.45 10^3/uL (3.29-11.43)
[2024-06-04 09:23] LABS: Alanine Aminotransferase 31 U/L (0-41); Albumin Level 3.9 g/dL (3.5-5.2); Alkaline Phosphatase 76 U/L (40-130); Anion Gap 12.6 (5-19); Aspartate Amino Transferase 25 U/L (0-40); Blood Urea Nitrogen 25 mg/dL (8-23); Calcium 8.8 mg/dL (8.5-10.5); Carbon Dioxide 27 mmol/L (22-29); Chloride 107 mmol/L (98-107); Creatinine Clr Calc Pharmacy 94.7994; Globulin 2.3 g/dL (1.3-4.6); Glomerular Filtration Rate 75.2 mL/min (90-130); Glucose 97 mg/dL (65-115); Osmolality Calculated 300 mOsm/kg (285-295); Potassium 3.6 mmol/L (3.5-5.1); Sodium 143 mmol/L (136-145); Total Bilirubin 0.6 mg/dL (0.15-1.2); Total Protein 6.2 g/dL (6.6-8.7)
[2024-06-04 10:40] VITALS: BP 160/84; PULSE 60; RESP 16; TEMP 36.5; O2SAT 95
[2024-06-04] MEDS: dextrose 5% 250 ML 75 ML IV (10:50)
[2024-06-04] MEDS: palonosetron 0.25 mg/5 mL SDV IVP (10:51)
[2024-06-04] MEDS: leucovorin 920 MG in dextrose 5% 250 ML 62.5 MG IV (11:27)
[2024-06-04 12:07] VITALS: BP 172/91; PULSE 62; RESP 17; TEMP 36.6; O2SAT 97
[2024-06-04] MEDS: ELASTOMERIC PUMP PUMP IV (12:10)
[2024-06-04] MEDS: FLUOROURACIL IV (12:10)
[2024-06-04] MEDS: SODIUM CHLORIDE IV (12:10)
== END 2024-06-16 23:59 | disposition home or self-care (01) ==
PROVIDERS: PCP Family Medicine; Visit Provider Internal Medicine Medical Oncology
DX: Z53.9 Procedure and treatment not carried out, unspecified reason (principal); Z45.1 Encounter for adjustment and management of infusion pump
CPT/HCPCS: 80053; 85025; 96365; 96368; 96375; 96413; 96415; 96416; 96523; J0640; J1100; J2469; J7060; J9190; J9263

== ENCOUNTER 2024-07-16 11:30 | Oncology outpatient (recurring) (ONCR) | payer OTHER, SELFPAY ==
[2024-06-18 10:04] LABS: Basophils % 0.3 %; Eosinophils # 0.1 10^3/uL (0.0-0.8); Eosinophils % 1.5 %; Hematocrit 46.4 % (37-53); Lymphocytes # 1.5 10^3/uL (0.8-4.8); Lymphocytes % 18.7 %; Mean Corpuscular HGB Conc 34.7 g/dL (30-55); Mean Corpuscular Hemoglobin 31.6 pg (27-33); Mean Corpuscular Volume 91.2 fl (82-101); Mean Platelet Volume 9.2 fL (7.4-10.4); Monocytes # 0.6 10^3/uL (0.2-0.9); Monocytes % 7.6 %; Neutrophils # 5.56 10^3/uL (1.8-7.7); Neutrophils % 71.5 %; Nucleated Red Blood Cells % 0 %; Platelet Count 186 10^3/cmm (157-399); Red Blood Count 5.09 10^6/uL (3.85-5.65); Red Cell Distribution Width 17.5 % (12.1-15.1); White Blood Count 7.77 10^3/uL (3.29-11.43)
[2024-06-18 10:35] LABS: Alanine Aminotransferase 22 U/L (0-41); Alkaline Phosphatase 83 U/L (40-130); Anion Gap 11.6 (5-19); Aspartate Amino Transferase 18 U/L (0-40); Blood Urea Nitrogen 27 mg/dL (8-23); Calcium 8.6 mg/dL (8.5-10.5); Carbon Dioxide 28 mmol/L (22-29); Chloride 106 mmol/L (98-107); Globulin 2.2 g/dL (1.3-4.6); Glomerular Filtration Rate 67.4 mL/min (90-130); Glucose 109 mg/dL (65-115); Osmolality Calculated 300 mOsm/kg (285-295); Potassium 3.6 mmol/L (3.5-5.1); Sodium 142 mmol/L (136-145); Total Bilirubin 0.7 mg/dL (0.15-1.2); Total Protein 6.2 g/dL (6.6-8.7)
[2024-06-18] MEDS: dextrose 5% 250 ML 75 ML IV (12:07)
[2024-06-18] MEDS: palonosetron 0.25 mg/5 mL SDV IVP (12:09)
[2024-06-18] MEDS: dexamethasone 4 mg/mL INJ 5 mL 12 MG IV (12:12)
[2024-06-18] MEDS: leucovorin 920 MG in dextrose 5% 250 ML 62.5 MG IV (12:42)
[2024-06-18 13:24] VITALS: BP 177/93; PULSE 60; TEMP 36.4; O2SAT 98
[2024-06-18] MEDS: ELASTOMERIC PUMP PUMP IV (13:26)
[2024-06-18] MEDS: FLUOROURACIL IV (13:26)
[2024-06-18] MEDS: SODIUM CHLORIDE IV (13:26)
[2024-07-02 09:13] LABS: Basophils % 0.5 %; Eosinophils # 0.1 10^3/uL (0.0-0.8); Eosinophils % 2.4 %; Hematocrit 43.1 % (37-53); Lymphocytes # 1.2 10^3/uL (0.8-4.8); Lymphocytes % 20.8 %; Mean Corpuscular Hemoglobin 33.3 pg (27-33); Mean Corpuscular Volume 95.1 fl (82-101); Monocytes # 0.4 10^3/uL (0.2-0.9); Monocytes % 7.5 %; Neutrophils # 3.91 10^3/uL (1.8-7.7); Neutrophils % 68.5 %; Nucleated Red Blood Cells % 0 %; Platelet Count 161 10^3/cmm (157-399); Red Blood Count 4.53 10^6/uL (3.85-5.65); Red Cell Distribution Width 16.6 % (12.1-15.1); White Blood Count 5.72 10^3/uL (3.29-11.43)
[2024-07-02 09:36] LABS: Alanine Aminotransferase 19 U/L (0-41); Albumin Level 3.9 g/dL (3.5-5.2); Alkaline Phosphatase 72 U/L (40-130); Anion Gap 10.5 (5-19); Aspartate Amino Transferase 14 U/L (0-40); Blood Urea Nitrogen 25 mg/dL (8-23); Calcium 8.4 mg/dL (8.5-10.5); Carbon Dioxide 28 mmol/L (22-29); Chloride 107 mmol/L (98-107); Creatinine Clr Calc Pharmacy 86.0071; Globulin 2.1 g/dL (1.3-4.6); Glomerular Filtration Rate 67.4 mL/min (90-130); Glucose 114 mg/dL (65-115); Osmolality Calculated 299 mOsm/kg (285-295); Potassium 3.5 mmol/L (3.5-5.1); Sodium 142 mmol/L (136-145); Total Bilirubin 0.8 mg/dL (0.15-1.2)
[2024-07-02 11:23] VITALS: BP 152/80; PULSE 61; RESP 16; TEMP 36.6
[2024-07-02] MEDS: palonosetron 0.25 mg/5 mL SDV IVP (11:35)
[2024-07-02] MEDS: dexamethasone 4 mg/mL INJ 5 mL 12 MG IV (11:37)
[2024-07-02] MEDS: leucovorin 920 MG in dextrose 5% 250 ML 62.5 MG IV (12:01)
[2024-07-02] MEDS: ELASTOMERIC PUMP PUMP IV (12:41)
[2024-07-02] MEDS: SODIUM CHLORIDE IV (12:41)
[2024-07-02] MEDS: FLUOROURACIL IV (12:41)
[2024-07-02 12:45] VITALS: BP 161/67; PULSE 60; TEMP 36.2
[2024-07-04 11:05] VITALS: BP 127/74; PULSE 72; RESP 16; TEMP 36
[2024-07-16 09:20] LABS: Basophils % 0.5 %; Eosinophils # 0.2 10^3/uL (0.0-0.8); Eosinophils % 2.4 %; Hematocrit 44.6 % (37-53); Lymphocytes # 1.4 10^3/uL (0.8-4.8); Lymphocytes % 22.9 %; Mean Corpuscular HGB Conc 34.1 g/dL (30-55); Mean Corpuscular Hemoglobin 33.4 pg (27-33); Mean Platelet Volume 9.3 fL (7.4-10.4); Monocytes # 0.5 10^3/uL (0.2-0.9); Monocytes % 7.5 %; Neutrophils # 4.17 10^3/uL (1.8-7.7); Neutrophils % 66.2 %; Nucleated Red Blood Cells % 0 %; Platelet Count 183 10^3/cmm (157-399); Red Blood Count 4.55 10^6/uL (3.85-5.65); Red Cell Distribution Width 16.1 % (12.1-15.1); White Blood Count 6.29 10^3/uL (3.29-11.43)
[2024-07-16 09:30] LABS: Alanine Aminotransferase 20 U/L (0-41); Albumin Level 3.9 g/dL (3.5-5.2); Alkaline Phosphatase 79 U/L (40-130); Aspartate Amino Transferase 18 U/L (0-40); Blood Urea Nitrogen 36 mg/dL (8-23); Calcium 8.5 mg/dL (8.5-10.5); Carbon Dioxide 27 mmol/L (22-29); Chloride 105 mmol/L (98-107); Creatinine Clr Calc Pharmacy 95.3023; Globulin 2.1 g/dL (1.3-4.6); Glomerular Filtration Rate 75.2 mL/min (90-130); Glucose 122 mg/dL (65-115); Osmolality Calculated 304 mOsm/kg (285-295); Sodium 142 mmol/L (136-145); Total Bilirubin 0.8 mg/dL (0.15-1.2)
[2024-07-16 09:36] LABS: Anion Gap 13.6 (5-19); Potassium 3.6 mmol/L (3.5-5.1)
[2024-07-16] MEDS: dexamethasone 4 mg/mL INJ 5 mL 12 MG IV (12:17)
[2024-07-16] MEDS: palonosetron 0.25 mg/5 mL SDV IVP (12:22)
[2024-07-16] MEDS: leucovorin 920 MG in dextrose 5% 250 ML 62.5 MG IV (12:25)
[2024-07-16] MEDS: SODIUM CHLORIDE IV (13:01)
[2024-07-16] MEDS: ELASTOMERIC PUMP PUMP IV (13:01)
[2024-07-16] MEDS: FLUOROURACIL IV (13:01)
[2024-07-16 13:19] VITALS: BP 143/82; PULSE 65; TEMP 36.4
== END 2024-07-17 23:59 | disposition home or self-care (01) ==
PROVIDERS: Nurse Practitioner; Nurse Practitioner Family; PCP Family Medicine; Visit Provider Internal Medicine Hematology & Oncology
DX: Z51.11 Encounter for antineoplastic chemotherapy (principal); C18.2 Malignant neoplasm of ascending colon; Z79.899 Other long term (current) drug therapy; Z79.52 Long term (current) use of systemic steroids; Z80.42 Family history of malignant neoplasm of prostate
CPT/HCPCS: 80053; 85025; 96365; 96375; 96413; 96416; 96523; J0640; J1100; J2469; J7060; J9190

== ENCOUNTER 2024-08-13 11:00 | Oncology outpatient (recurring) (ONCR) | payer OTHER, SELFPAY ==
[2024-07-30 08:36] LABS: Basophils % 0.3 %; Eosinophils # 0.2 10^3/uL (0.0-0.8); Eosinophils % 2.4 %; Hematocrit 45.9 % (37-53); Lymphocytes # 1.5 10^3/uL (0.8-4.8); Lymphocytes % 21.8 %; Mean Corpuscular HGB Conc 34.4 g/dL (30-55); Mean Corpuscular Hemoglobin 33.6 pg (27-33); Mean Corpuscular Volume 97.7 fl (82-101); Mean Platelet Volume 9.1 fL (7.4-10.4); Monocytes # 0.6 10^3/uL (0.2-0.9); Monocytes % 8.2 %; Neutrophils # 4.49 10^3/uL (1.8-7.7); Neutrophils % 66.9 %; Nucleated Red Blood Cells % 0 %; Platelet Count 184 10^3/cmm (157-399); Red Cell Distribution Width 15.1 % (12.1-15.1); White Blood Count 6.71 10^3/uL (3.29-11.43)
[2024-07-30 09:01] LABS: Carcinoembryonic Antigen 1.7 ng/mL (0.0-4.7)
[2024-07-30 09:12] LABS: Alanine Aminotransferase 19 U/L (0-41); Alkaline Phosphatase 80 U/L (40-130); Aspartate Amino Transferase 16 U/L (0-40); Blood Urea Nitrogen 26 mg/dL (8-23); Calcium 8.7 mg/dL (8.5-10.5); Carbon Dioxide 26 mmol/L (22-29); Chloride 108 mmol/L (98-107); Creatinine Clr Calc Pharmacy 105.2613; Globulin 2.2 g/dL (1.3-4.6); Glomerular Filtration Rate 75.2 mL/min (90-130); Glucose 111 mg/dL (65-115); Osmolality Calculated 303 mOsm/kg (285-295); Sodium 144 mmol/L (136-145); Total Bilirubin 0.6 mg/dL (0.15-1.2); Total Protein 6.2 g/dL (6.6-8.7)
[2024-07-30] MEDS: palonosetron 0.25 mg/5 mL SDV IVP (11:17)
[2024-07-30] MEDS: dexamethasone 4 mg/mL INJ 5 mL 12 MG IV (11:20)
[2024-07-30] MEDS: leucovorin 920 MG in dextrose 5% 250 ML 600 MG IV (11:47)
[2024-07-30] MEDS: ELASTOMERIC PUMP PUMP IV (12:29)
[2024-07-30] MEDS: FLUOROURACIL IV (12:29)
[2024-07-30] MEDS: SODIUM CHLORIDE IV (12:29)
[2024-07-30 12:30] VITALS: BP 142/68; PULSE 84; RESP 17; TEMP 36.6; O2SAT 98
[2024-08-01 11:02] VITALS: BP 132/77; PULSE 70; RESP 18; TEMP 36.3; O2SAT 94
[2024-08-11 09:21] LABS: Basophils % 0.3 %; Eosinophils # 0.2 10^3/uL (0.0-0.8); Eosinophils % 2.8 %; Hematocrit 44.3 % (37-53); Lymphocytes # 1.7 10^3/uL (0.8-4.8); Lymphocytes % 25.7 %; Mean Corpuscular HGB Conc 34.8 g/dL (30-55); Mean Corpuscular Hemoglobin 34.6 pg (27-33); Mean Corpuscular Volume 99.6 fl (82-101); Mean Platelet Volume 9.3 fL (7.4-10.4); Monocytes # 0.5 10^3/uL (0.2-0.9); Monocytes % 7.2 %; Neutrophils # 4.08 10^3/uL (1.8-7.7); Neutrophils % 63.5 %; Nucleated Red Blood Cells % 0 %; Platelet Count 192 10^3/cmm (157-399); Red Blood Count 4.45 10^6/uL (3.85-5.65); Red Cell Distribution Width 14.7 % (12.1-15.1); White Blood Count 6.42 10^3/uL (3.29-11.43)
[2024-08-11 09:48] LABS: Carcinoembryonic Antigen 1.6 ng/mL (0.0-4.7)
[2024-08-11 09:59] LABS: Albumin Level 3.6 g/dL (3.5-5.2); Alkaline Phosphatase 68 U/L (40-130); Blood Urea Nitrogen 26 mg/dL (8-23); Calcium 8.6 mg/dL (8.5-10.5); Carbon Dioxide 24 mmol/L (22-29); Chloride 105 mmol/L (98-107); Creatinine Clr Calc Pharmacy 106.9555; Globulin 2.3 g/dL (1.3-4.6); Glucose 110 mg/dL (65-115); Osmolality Calculated 295 mOsm/kg (285-295); Sodium 140 mmol/L (136-145); Total Bilirubin 0.4 mg/dL (0.15-1.2); Total Protein 5.9 g/dL (6.6-8.7)
[2024-08-11 10:04] LABS: Anion Gap 14.7 (5-19); Potassium 3.7 mmol/L (3.5-5.1)
[2024-08-11 10:05] LABS: Lactate Dehydrogenase 292 U/L (135-225)
[2024-08-11 10:14] LABS: Alanine Aminotransferase < 5 U/L (0-41); Aspartate Amino Transferase 5 U/L (0-40)
[2024-08-11] MEDS: palonosetron 0.25 mg/5 mL SDV IVP (10:56)
[2024-08-11] MEDS: dexamethasone 4 mg/mL INJ 5 mL 12 MG IV (11:00)
[2024-08-11] MEDS: leucovorin 920 MG in dextrose 5% 250 ML 62.5 MG IV (11:40)
[2024-08-11] MEDS: SODIUM CHLORIDE IV (12:19)
[2024-08-11] MEDS: FLUOROURACIL IV (12:19)
[2024-08-11] MEDS: ELASTOMERIC PUMP PUMP IV (12:19)
[2024-08-11 12:26] VITALS: BP 159/87; PULSE 62; TEMP 36.6; O2SAT 96
[2024-08-13 14:47] VITALS: BP 118/74; PULSE 74; RESP 16; TEMP 36.8; O2SAT 96
== END 2024-08-16 23:59 | disposition home or self-care (01) ==
PROVIDERS: Nurse Practitioner Family; PCP Family Medicine; Visit Provider Internal Medicine Hematology & Oncology
DX: Z45.1 Encounter for adjustment and management of infusion pump (principal); Z53.9 Procedure and treatment not carried out, unspecified reason
CPT/HCPCS: 80053; 82378; 83615; 83735; 85025; 96365; 96375; 96413; 96416; 96523; J0640; J1100; J2469; J7060; J9190

== ENCOUNTER 2024-09-01 13:30 | Oncology outpatient (recurring) (ONCR) | payer OTHER, SELFPAY ==
[2024-08-29] MEDS: iohexol 350 mg/mL 500 mL Btl (per mL) IV (15:23)
[2024-08-29] MEDS: iohexol 350 mg/mL 500 mL Btl (per mL) PO (15:23)
--- NOTE | 2024-08-29 15:30 | CTR_ITS ---
PROCEDURE INFORMATION: Exam: CT Chest With Contrast; Diagnostic Exam date and time: 08/29/2024 3:09 PM Age: 64 years old Clinical indication: Condition or disease; Other: Primary adenocarcinoma of ascending colon; Prior surgery; Surgery date: 6+ months; Surgery type: Colon, appy TECHNIQUE: Imaging protocol: Diagnostic computed tomography of the chest with contrast. Radiation optimization: All CT scans at this facility use at least one of these dose optimization techniques: automated exposure control; mA and/or kV adjustment per patient size (includes targeted exams where dose is matched to clinical indication); or iterative reconstruction. Contrast material: OMNI 350; Contrast volume: 100 ml; Contrast route: INTRAVENOUS (IV); COMPARISON: PT PET skull to thigh INIT [id number] 03/11/2024 1:51 PM RADIATION DOSE METRICS: Total DLP (mGy-cm): 1391.28 FINDINGS: Tubes, catheters and devices: A right-sided VAD is in good position with the catheter tip in the lower SVC. Lungs: There is a 1 cm diameter rounded nodule lying in the posterior aspect of the right lower lobe. A similar-appearing 1 cm nodule is noted in the left lower lobe anteriorly. A collection of tiny irregular nodules are noted in the left upper lobe. A 3 mm nodule is noted in the left upper lobe superiorly and anteriorly. I see no lung infiltrate. Pleural spaces: Unremarkable. No pneumothorax. No pleural effusion. Heart: Unremarkable. No cardiomegaly. No pericardial effusion. Lymph nodes: Unremarkable. No enlarged lymph nodes. Vasculature: Unremarkable. No aortic aneurysm. Bones/joints: Unremarkable. No acute fracture. Soft tissues: Unremarkable. PROCEDURE INFORMATION: Exam: CT Abdomen And Pelvis With Contrast Exam date and time: 08/29/2024 3:09 PM Age: 64 years old Clinical indication: Condition or disease; Other: Primary adenocarcinoma of ascending colon; Prior surgery; Surgery date: 6+ months; Surgery type: Colon, appy TECHNIQUE: Imaging protocol: Computed tomography of the abdomen and pelvis with contrast. Radiation optimization: All CT scans at this facility use at least one of these dose optimization techniques: automated exposure control; mA and/or kV adjustment per patient size (includes targeted exams where dose is matched to clinical indication); or iterative reconstruction. Contrast material: OMNI 350; Contrast volume: 100 ml; Contrast route: INTRAVENOUS (IV); COMPARISON: PT PET skull to thigh INIT [id number] 03/11/2024 1:51 PM RADIATION DOSE METRICS: Total DLP (mGy-cm): 1391.28 FINDINGS: Lungs: Lung bases are clear. No pleural effusion. Liver: Normal. No mass. Gallbladder and biliary ducts: Normal. No calcified stones. No ductal dilation. Pancreas: Normal. No ductal dilation. Spleen: Normal. No splenomegaly. Adrenal glands: Normal. No mass. Kidneys and ureters: A 4.1 cm simple cyst involves the left kidney along with a 2 cm angiomyolipoma. Stomach and bowel: There is evidence of previous right colonic surgery. Appendix: No evidence of appendicitis. Intraperitoneal space: Unremarkable. No free air. No significant fluid collection. Vasculature: Unremarkable. No abdominal aortic aneurysm. Lymph nodes: Unremarkable. No enlarged lymph nodes. Urinary bladder: Unremarkable as visualized. Reproductive: The prostate gland is abnormally enlarged. Bones/joints: Unremarkable. No acute fracture. Soft tissues: Unremarkable. CT/CT chest abdpel w/*[id number] IMPRESSION: Stable lung nodules IMPRESSION: 1. There is no evidence of active neoplastic disease. 2. A benign renal cyst or cysts have been detected. No further follow-up imaging is required. 3. Left renal angiomyolipoma 4. Prostate enlargement COMMENTS: Consistent with the [employer]'s Incidental Findings Committee white paper (J Am Janusz Radiol 2018): Any incidental renal lesion less than 1 cm or classified as too small to characterize, or any incidental cystic renal lesion characterized as simple-appearing, is likely benign. No follow-up imaging is recommended for these lesions per consensus recommendations based on imaging criteria.
[2024-09-01 13:49] LABS: Basophils % 0.4 %; Eosinophils % 0.4 %; Hematocrit 45.7 % (37-53); Lymphocytes # 0.8 10^3/uL (0.8-4.8); Lymphocytes % 11.1 %; Mean Corpuscular HGB Conc 34.8 g/dL (30-55); Mean Corpuscular Hemoglobin 34.1 pg (27-33); Mean Corpuscular Volume 98.1 fl (82-101); Mean Platelet Volume 9.3 fL (7.4-10.4); Monocytes # 0.4 10^3/uL (0.2-0.9); Monocytes % 5.9 %; Neutrophils # 5.84 10^3/uL (1.8-7.7); Neutrophils % 81.9 %; Nucleated Red Blood Cells % 0 %; Platelet Count 223 10^3/cmm (157-399); Red Blood Count 4.66 10^6/uL (3.85-5.65); Red Cell Distribution Width 13.7 % (12.1-15.1); White Blood Count 7.13 10^3/uL (3.29-11.43)
[2024-09-01 14:15] LABS: Carcinoembryonic Antigen 1.5 ng/mL (0.0-4.7)
[2024-09-01 14:27] LABS: Alanine Aminotransferase 24 U/L (0-41); Alkaline Phosphatase 77 U/L (40-130); Anion Gap 13.3 (5-19); Aspartate Amino Transferase 18 U/L (0-40); Blood Urea Nitrogen 21 mg/dL (8-23); Calcium 9.1 mg/dL (8.5-10.5); Carbon Dioxide 25 mmol/L (22-29); Chloride 107 mmol/L (98-107); Creatinine Clr Calc Pharmacy 96.2599; Globulin 2.4 g/dL (1.3-4.6); Glomerular Filtration Rate 75.2 mL/min (90-130); Glucose 109 mg/dL (65-115); Osmolality Calculated 296 mOsm/kg (285-295); Potassium 4.3 mmol/L (3.5-5.1); Sodium 141 mmol/L (136-145); Total Bilirubin 0.6 mg/dL (0.15-1.2); Total Protein 6.4 g/dL (6.6-8.7)
== END 2024-09-16 23:59 | disposition home or self-care (01) ==
PROVIDERS: Internal Medicine Medical Oncology; PCP Family Medicine; Visit Provider Internal Medicine Hematology & Oncology
DX: C18.2 Malignant neoplasm of ascending colon; Z53.9 Procedure and treatment not carried out, unspecified reason
CPT/HCPCS: 36591; 71260; 74177; 80053; 82378; 85025

== ENCOUNTER 2024-09-29 09:56 | Oncology outpatient (recurring) (ONCR) | payer OTHER, SELFPAY | END 2024-10-17 23:59 | disposition home or self-care (01) | LOC: ONCMED 09:57 | PROVIDERS: PCP Family Medicine; Visit Provider Internal Medicine Hematology & Oncology | DX: Z45.2 Encounter for adjustment and management of vascular access device (principal) | CPT/HCPCS: 96523 ==

== ENCOUNTER 2024-10-31 09:16 | Oncology outpatient (recurring) (ONCR) | payer OTHER, SELFPAY | END 2024-11-14 23:59 | disposition home or self-care (01) | LOC: ONCMED 09:16 | PROVIDERS: PCP Family Medicine; Visit Provider Internal Medicine | DX: Z45.2 Encounter for adjustment and management of vascular access device (principal) | CPT/HCPCS: 96523 ==

== ENCOUNTER 2024-12-02 11:34 | Oncology outpatient (recurring) (ONCR) | payer OTHER, SELFPAY ==
[2024-12-02 12:11] LABS: Basophils % 0.3 %; Eosinophils # 0.1 10^3/uL (0.0-0.8); Eosinophils % 1.1 %; Hematocrit 48.8 % (37-53); Lymphocytes # 0.9 10^3/uL (0.8-4.8); Lymphocytes % 13.8 %; Mean Corpuscular HGB Conc 34.2 g/dL (30-55); Mean Corpuscular Hemoglobin 31.7 pg (27-33); Mean Corpuscular Volume 92.8 fl (82-101); Mean Platelet Volume 9.4 fL (7.4-10.4); Monocytes # 0.4 10^3/uL (0.2-0.9); Neutrophils # 4.93 10^3/uL (1.8-7.7); Neutrophils % 78.5 %; Nucleated Red Blood Cells % 0 %; Platelet Count 209 10^3/cmm (157-399); Red Blood Count 5.26 10^6/uL (3.85-5.65); Red Cell Distribution Width 12.3 % (12.1-15.1); White Blood Count 6.29 10^3/uL (3.29-11.43)
[2024-12-02 12:40] LABS: Carcinoembryonic Antigen 1.3 ng/mL (0.0-4.7)
[2024-12-02 12:53] LABS: Alanine Aminotransferase 20 U/L (0-41); Alkaline Phosphatase 71 U/L (40-130); Aspartate Amino Transferase 17 U/L (0-40); Blood Urea Nitrogen 24 mg/dL (8-23); Calcium 9.3 mg/dL (8.5-10.5); Carbon Dioxide 27 mmol/L (22-29); Chloride 104 mmol/L (98-107); Globulin 2.5 g/dL (1.3-4.6); Glomerular Filtration Rate 75.2 mL/min (90-130); Glucose 92 mg/dL (65-115); Osmolality Calculated 294 mOsm/kg (285-295); Sodium 140 mmol/L (136-145); Total Bilirubin 0.9 mg/dL (0.15-1.2); Total Protein 6.5 g/dL (6.6-8.7)
== END 2024-12-15 23:59 | disposition home or self-care (01) ==
PROVIDERS: Nurse Practitioner Family; PCP Family Medicine; Visit Provider Internal Medicine
DX: C18.2 Malignant neoplasm of ascending colon (principal)
CPT/HCPCS: 36591; 80053; 82378; 85025

== ENCOUNTER 2025-01-09 09:26 | Oncology outpatient (recurring) (ONCR) | payer OTHER, SELFPAY | END 2025-01-14 23:59 | disposition home or self-care (01) | LOC: ONCMED 09:27 | PROVIDERS: PCP Family Medicine; Visit Provider Internal Medicine | DX: Z45.2 Encounter for adjustment and management of vascular access device (principal); Z95.828 Presence of other vascular implants and grafts | CPT/HCPCS: 96523 ==

== ENCOUNTER 2025-02-27 11:30 | Oncology outpatient (recurring) (ONCR) | payer MEDICARE, OTHER, SELFPAY ==
--- NOTE | 2025-02-16 10:30 | CT_ITS ---
WS: [email or web address] CT CHEST, ABDOMEN, AND PELVIS TECHNIQUE: Contrast-enhanced CT of the chest, abdomen, and pelvis with coronal and sagittal reformatted images. CLINICAL INFORMATION: primary adenocarcinoma of ascending colon COMPARISON: 08/29/2024 DLP: 1320.[address] scans at [facility] use at least one of these dose optimization techniques: automated exposure control; mA and/or kV adjustment per patient size (includes targeted exams where dose is matched to clinical indication); or iterative reconstruction. CT CHEST: Innumerable bilateral pulmonary nodules are new and significantly progressed compared to 08/29/2024. Largest nodules measure up to 2.0 cm. Diffuse innumerable nodules throughout both lungs. Findings compatible with progression of disease. A few small RIGHT thyroid nodules. Normal caliber thoracic aorta. Normal caliber descending thoracic aorta. No axillary lymphadenopathy. Ankylosis thoracic spine. Moderate thoracic kyphosis. CT ABDOMEN AND PELVIS: LEFT renal angiomyolipoma. Enlarged prostate with evidence of bladder outlet obstruction. Heterogeneous enhancing nodular prostate measures 5.5 cm. Recommend correlation with PSA. Few sigmoid diverticuli. Postoperative changes RIGHT colon with surgical clips. No evidence of recurrent mass or lesion at the colectomy site. Fatty liver. Normal spleen. Normal GE junction. Normal pancreatic parenchymal enhancement. Celiac and SMA are patent. Normal caliber abdominal aorta. LEFT renal cyst measuring 3.5 cm unchanged. Additional smaller renal cysts. Adrenal glands are normal. Stable small LEFT renal angiomyolipoma measuring 1.3 cm. No adenopathy in the abdomen or pelvis. Grade 1 anterolisthesis L5 on S1. CT/CT chest abdpel w/*[id number] IMPRESSION: 1. Significant marked progression of the pulmonary metastasis with diffuse fabiola ateral progressed and new pulmonary nodules largest measuring up to 2.0 cm. 2. No evidence of metastatic disease in the abdomen or pelvis. 3. Marked prostate enlargement measuring 5.4 cm. Recommend correlation with PS A. 4. Stable small LEFT renal angiomyolipoma. 5. No other significant changes.
[2025-02-16 11:15] LABS: Basophils % 0.5 %; Eosinophils # 0.2 10^3/uL (0.0-0.8); Eosinophils % 3.4 %; Hematocrit 47.9 % (37-53); Lymphocytes # 1.2 10^3/uL (0.8-4.8); Lymphocytes % 19.8 %; Mean Corpuscular HGB Conc 34.2 g/dL (30-55); Mean Corpuscular Hemoglobin 31.4 pg (27-33); Mean Corpuscular Volume 91.8 fl (82-101); Mean Platelet Volume 9.2 fL (7.4-10.4); Monocytes # 0.6 10^3/uL (0.2-0.9); Neutrophils # 3.78 10^3/uL (1.8-7.7); Nucleated Red Blood Cells % 0 %; Platelet Count 189 10^3/cmm (157-399); Red Blood Count 5.22 10^6/uL (3.85-5.65); Red Cell Distribution Width 13.2 % (12.1-15.1); White Blood Count 5.82 10^3/uL (3.29-11.43)
[2025-02-16 11:37] LABS: Carcinoembryonic Antigen 1.6 ng/mL (0.0-4.7)
[2025-02-16 11:49] LABS: Alanine Aminotransferase 24 U/L (0-41); Albumin Level 3.9 g/dL (3.5-5.2); Alkaline Phosphatase 71 U/L (40-130); Anion Gap 13.5 (5-19); Aspartate Amino Transferase 17 U/L (0-40); Blood Urea Nitrogen 26 mg/dL (8-23); Carbon Dioxide 27 mmol/L (22-29); Chloride 104 mmol/L (98-107); Globulin 2.5 g/dL (1.3-4.6); Glomerular Filtration Rate 75.2 mL/min (90-130); Glucose 113 mg/dL (65-115); Osmolality Calculated 298 mOsm/kg (285-295); Potassium 3.5 mmol/L (3.5-5.1); Sodium 141 mmol/L (136-145); Total Bilirubin 0.9 mg/dL (0.15-1.2); Total Protein 6.4 g/dL (6.6-8.7)
[2025-02-16] MEDS: iohexol 350 mg/mL 500 mL Btl (per mL) PO (12:40)
[2025-02-16] MEDS: iohexol 350 mg/mL 500 mL Btl (per mL) IV (12:40)
[2025-02-16 12:48] LABS: Blood Urea Nitrogen 26 mg/dL (8-23); Glomerular Filtration Rate 67.4 mL/min (90-130)
--- NOTE | 2025-02-27 11:30 | PETR_ITS ---
PROCEDURE INFORMATION: Exam: PET/CT Skull Base to Mid-thigh Exam date and time: 02/27/2025 12:06 PM Age: 65 years old Clinical indication: Condition or disease; Primary cancer: Primary adenocarcinoma of ascending colon; Follow-up oncological assessment LABS AND CLINICAL REPORTS: Glucose: 88 mg/dl Treatment strategy for malignancy (PET staging): Restaging (PS) TECHNIQUE: Imaging protocol: Following at least four-hour fasting and following the injection of radiopharmaceutical, low dose CT images were obtained. Then, PET images were obtained. Attenuation corrected images were constructed using the CT scan. Fused images of PET and CT were reviewed. The standardized uptake values (SUV) reported below are maximum values within a region of interest, expressed in gm/ml. Exam includes orbital meatal line to mid-thigh. SUV normalization method: BodyWeight Radiopharmaceutical: 12.21 mCi F-18 FDG (Fluorodeoxyglucose), IV. Time of imaging post radiopharmaceutical administration: 45 minutes Injection site: RT CHEST PORT COMPARISON: PT PET skull to thigh INIT [id number] 03/11/2024 1:51 PM FINDINGS: Tubes, catheters and devices: Right-sided Port-A-Cath terminates at the superior cavoatrial junction. Brain: Visualized brain has normal physiologic uptake. Paranasal sinuses: Complete opacification of the right maxillary sinus. Pharynx: No abnormal uptake. Larynx: No abnormal uptake. Lungs, pleura and trachea: Numerous hypermetabolic bilateral pulmonary nodules are seen. Adjacent index nodules in the right lung have SUV max 12.3 on image 100. Index left lower lobe pulmonary nodule has SUV max 12.9 and measures up to 1.8 cm on image 107. Nodules appear similar in size to 02/17/2020. Heart: Normal physiologic uptake. Mediastinal space: No abnormal uptake. Liver: No abnormal uptake. Gallbladder and biliary ducts: No abnormal uptake. Pancreas: No abnormal uptake. Spleen: No abnormal uptake. Adrenal glands: No abnormal uptake. Kidneys and ureters: Left renal cyst. Small left renal angiomyolipoma. No hydronephrosis. Stomach and bowel: Status post partial right hemicolectomy. Reproductive: Prostatomegaly. Vasculature: No abnormal uptake. Lymph nodes: Hypermetabolic 9 mm retrocrural lymph node has SUV max 12.7. Some hypermetabolic foci adjacent to the head of the pancreas may correspond to small lymph nodes (SUV max 14.5). Skeleton: No abnormal uptake in the visualized axial and appendicular skeleton. Soft tissues: Small fat containing right inguinal hernia. METRICS: Mediastinal blood pool: SUV max is 2.3 Liver uptake: SUV max is 3.2 PET/PET skull to thigh SUBS [id number] IMPRESSION: 1. Interval disease progression compared to prior PET. Numerous hypermetabolic bilateral pulmonary nodules are seen as well as a hypermetabolic retrocrural lymph node. 2. Hypermetabolic foci adjacent to the pancreatic head may correspond to small lymph nodes and may also reflect neoplastic involvement.
== END 2025-03-16 23:59 | disposition home or self-care (01) ==
PROVIDERS: PCP Family Medicine; Visit Provider Internal Medicine Medical Oncology
DX: Z53.9 Procedure and treatment not carried out, unspecified reason; C18.2 Malignant neoplasm of ascending colon; R91.8 Other nonspecific abnormal finding of lung field; R59.0 Localized enlarged lymph nodes; R93.89 Abnormal findings on diagnostic imaging of other specified body structures; J34.89 Other specified disorders of nose and nasal sinuses; N28.1 Cyst of kidney, acquired; D17.71 Benign lipomatous neoplasm of kidney; Z98.890 Other specified postprocedural states; N40.0 Benign prostatic hyperplasia without lower urinary tract symptoms; K40.90 Unilateral inguinal hernia, without obstruction or gangrene, not specified as recurrent
CPT/HCPCS: 71260; 74177; 78815; 80053; 82378; 82565; 84520; 85025; A9552

== ENCOUNTER 2025-04-14 07:59 | Oncology outpatient (recurring) (ONCR) | payer MEDICARE, OTHER, SELFPAY ==
[2025-03-24 14:55] LABS: Hematocrit 47.4 % (37-53); Hemoglobin 16.30 g/dL (11.27-16.99); Mean Corpuscular HGB Conc 34.4 g/dL (30-55); Mean Corpuscular Hemoglobin 30.9 pg (27-33); Mean Corpuscular Volume 89.8 fl (82-101); Nucleated Red Blood Cells % 0 %; Platelet Count 205 10^3/cmm (157-399); Red Blood Count 5.28 10^6/uL (3.85-5.65); White Blood Count 4.91 10^3/uL (3.29-11.43)
[2025-03-24 15:26] LABS: Carcinoembryonic Antigen 1.7 ng/mL (0.0-4.7)
[2025-03-24 15:43] LABS: Alanine Aminotransferase 20 U/L (0-41); Albumin Level 4.0 g/dL (3.5-5.2); Alkaline Phosphatase 72 U/L (40-130); Anion Gap 15.1 (5-19); Aspartate Amino Transferase 17 U/L (0-40); Blood Urea Nitrogen 28 mg/dL (8-23); Calcium 9.3 mg/dL (8.5-10.5); Carbon Dioxide 25 mmol/L (22-29); Chloride 105 mmol/L (98-107); Creatinine Clr Calc Pharmacy 93.4813; Globulin 2.7 g/dL (1.3-4.6); Glucose 95 mg/dL (65-115); Osmolality Calculated 297 mOsm/kg (285-295); Potassium 4.1 mmol/L (3.5-5.1); Sodium 141 mmol/L (136-145); Total Protein 6.7 g/dL (6.6-8.7)
[2025-04-01 08:20] LABS: Hematocrit 46.8 % (37-53); Hemoglobin 16.50 g/dL (11.27-16.99); Mean Corpuscular HGB Conc 35.3 g/dL (30-55); Mean Corpuscular Hemoglobin 31.9 pg (27-33); Mean Corpuscular Volume 90.3 fl (82-101); Nucleated Red Blood Cells % 0 %; Platelet Count 185 10^3/cmm (157-399); Red Blood Count 5.18 10^6/uL (3.85-5.65); White Blood Count 5.55 10^3/uL (3.29-11.43)
[2025-04-01 09:04] LABS: Carcinoembryonic Antigen 1.9 ng/mL (0.0-4.7)
[2025-04-01 09:15] LABS: Alanine Aminotransferase 18 U/L (0-41); Albumin Level 3.9 g/dL (3.5-5.2); Alkaline Phosphatase 71 U/L (40-130); Anion Gap 19.8 (5-19); Aspartate Amino Transferase 18 U/L (0-40); Blood Urea Nitrogen 32 mg/dL (8-23); Calcium 8.8 mg/dL (8.5-10.5); Carbon Dioxide 22 mmol/L (22-29); Chloride 103 mmol/L (98-107); Creatinine Clr Calc Pharmacy 102.6079; Globulin 2.6 g/dL (1.3-4.6); Glucose 77 mg/dL (65-115); Osmolality Calculated 298 mOsm/kg (285-295); Potassium 3.8 mmol/L (3.5-5.1); Sodium 141 mmol/L (136-145); Total Protein 6.5 g/dL (6.6-8.7)
[2025-04-01] MEDS: dexamethasone 4 mg/mL INJ 5 mL 12 MG IVP (10:30)
[2025-04-01] MEDS: [UNRECOGNIZED DRUG - OTHER] IV (11:00)
[2025-04-01] MEDS: BEVACIZUMAB BVZR IV (11:00)
[2025-04-01] MEDS: atropine 1 mg/mL SDV 1 mL 0.4 MG IV (12:54)
[2025-04-01] MEDS: leucovorin 900 MG in dextrose 5% 250 ML 166.67 MG IV (12:56)
[2025-04-01] MEDS: IRINOTECAN IV (12:57)
[2025-04-01] MEDS: DEXTROSE 5% IV (12:57)
[2025-04-01] MEDS: fluorouraciL 50 mg/ml MDV 100 mL 908 MG IVP (15:28)
[2025-04-01] MEDS: fluorouraciL 5,450 MG, elastomeric pump 1 PUMP in sodium chloride 0.9% (100 ml) 121 ML IV (15:38)
[2025-04-01 16:00] VITALS: BP 131/75; PULSE 65; RESP 16; TEMP 36.6; O2SAT 97
[2025-04-03 12:13] VITALS: BP 116/72; PULSE 59; RESP 17; TEMP 36.2; O2SAT 98
[2025-04-08 08:47] LABS: Hematocrit 44.7 % (37-53); Hemoglobin 16.10 g/dL (11.27-16.99); Mean Corpuscular HGB Conc 36.0 g/dL (30-55); Mean Corpuscular Hemoglobin 31.8 pg (27-33); Mean Corpuscular Volume 88.2 fl (82-101); Nucleated Red Blood Cells % 0 %; Platelet Count 167 10^3/cmm (157-399); Red Blood Count 5.07 10^6/uL (3.85-5.65); White Blood Count 3.20 10^3/uL (3.29-11.43)
[2025-04-08 09:21] LABS: Carcinoembryonic Antigen 1.7 ng/mL (0.0-4.7)
[2025-04-08 09:32] LABS: Alanine Aminotransferase 19 U/L (0-41); Albumin Level 4.0 g/dL (3.5-5.2); Alkaline Phosphatase 74 U/L (40-130); Anion Gap 18.0 (5-19); Aspartate Amino Transferase 20 U/L (0-40); Blood Urea Nitrogen 27 mg/dL (8-23); Calcium 8.6 mg/dL (8.5-10.5); Carbon Dioxide 23 mmol/L (22-29); Chloride 103 mmol/L (98-107); Creatinine Clr Calc Pharmacy 91.4021; Globulin 2.7 g/dL (1.3-4.6); Glucose 75 mg/dL (65-115); Osmolality Calculated 294 mOsm/kg (285-295); Potassium 4.0 mmol/L (3.5-5.1); Sodium 140 mmol/L (136-145); Total Protein 6.7 g/dL (6.6-8.7)
[2025-04-14 08:13] LABS: Hematocrit 43.1 % (37-53); Hemoglobin 14.90 g/dL (11.27-16.99); Mean Corpuscular HGB Conc 34.6 g/dL (30-55); Mean Corpuscular Hemoglobin 30.4 pg (27-33); Mean Corpuscular Volume 88.0 fl (82-101); Nucleated Red Blood Cells % 0 %; Platelet Count 159 10^3/cmm (157-399); Red Blood Count 4.90 10^6/uL (3.85-5.65); White Blood Count 3.29 10^3/uL (3.29-11.43)
[2025-04-14 08:49] LABS: Alanine Aminotransferase 20 U/L (0-41); Albumin Level 3.8 g/dL (3.5-5.2); Alkaline Phosphatase 74 U/L (40-130); Anion Gap 16.5 (5-19); Aspartate Amino Transferase 21 U/L (0-40); Blood Urea Nitrogen 31 mg/dL (8-23); Calcium 8.6 mg/dL (8.5-10.5); Carbon Dioxide 24 mmol/L (22-29); Chloride 106 mmol/L (98-107); Creatinine Clr Calc Pharmacy 91.4021; Globulin 2.4 g/dL (1.3-4.6); Glucose 89 mg/dL (65-115); Osmolality Calculated 302 mOsm/kg (285-295); Potassium 3.5 mmol/L (3.5-5.1); Sodium 143 mmol/L (136-145); Total Protein 6.2 g/dL (6.6-8.7)
[2025-04-14] MEDS: dexamethasone 4 mg/mL INJ 5 mL 12 MG IVP (09:29)
[2025-04-14] MEDS: atropine 1 mg/mL SDV 1 mL 0.4 MG IV (09:37)
[2025-04-14 09:46] LABS: Carcinoembryonic Antigen 1.9 ng/mL (0.0-4.7)
[2025-04-14] MEDS: [UNRECOGNIZED DRUG - OTHER] IV (10:01)
[2025-04-14] MEDS: BEVACIZUMAB BVZR IV (10:01)
[2025-04-14] MEDS: IRINOTECAN IV (11:18)
[2025-04-14] MEDS: leucovorin 900 MG in dextrose 5% 250 ML 166.67 MG IV (11:18)
[2025-04-14] MEDS: DEXTROSE 5% IV (11:18)
[2025-04-14] MEDS: fluorouraciL 50 mg/ml MDV 100 mL 900 MG IVP (13:04)
[2025-04-14] MEDS: fluorouraciL 5,400 MG, elastomeric pump 1 PUMP in sodium chloride 0.9% (100 ml) 122 ML IV (13:05)
[2025-04-14 13:20] VITALS: BP 126/86; PULSE 65; RESP 18; TEMP 36.9; O2SAT 99
== END 2025-04-14 23:59 | disposition home or self-care (01) ==
PROVIDERS: Internal Medicine Medical Oncology; PCP Family Medicine; Visit Provider Nurse Practitioner Family
DX: Z53.9 Procedure and treatment not carried out, unspecified reason (principal); Z51.11 Encounter for antineoplastic chemotherapy; C18.2 Malignant neoplasm of ascending colon; C78.01 Secondary malignant neoplasm of right lung; C78.02 Secondary malignant neoplasm of left lung; D70.9 Neutropenia, unspecified; Z87.891 Personal history of nicotine dependence; Z79.631 Long term (current) use of antimetabolite agent; Z90.49 Acquired absence of other specified parts of digestive tract; Z79.52 Long term (current) use of systemic steroids
CPT/HCPCS: 36591; 80053; 82378; 85025; 96360; 96366; 96368; 96375; 96409; 96411; 96413; 96415; 96416; 96417; 96523; 99213; 99214; 99215; J0461; J0640; J1100; J2469; J7030; J7050; J7060; J9190; J9206; Q5118

== ENCOUNTER 2025-04-16 11:17 | Oncology outpatient (recurring) (ONCR) | payer MEDICARE, OTHER, SELFPAY | END 2025-04-16 23:59 | disposition home or self-care (01) | LOC: ONCMED 11:17 | PROVIDERS: PCP Family Medicine; Visit Provider Nurse Practitioner Family | DX: Z45.1 Encounter for adjustment and management of infusion pump (principal) | CPT/HCPCS: 96523 ==

== ENCOUNTER 2025-05-12 07:34 | Oncology outpatient (recurring) (ONCR) | payer MEDICARE, OTHER, SELFPAY ==
[2025-04-21 09:19] LABS: Hematocrit 40.2 % (37-53); Hemoglobin 14.30 g/dL (11.27-16.99); Mean Corpuscular HGB Conc 35.6 g/dL (30-55); Mean Corpuscular Hemoglobin 31.0 pg (27-33); Mean Corpuscular Volume 87.2 fl (82-101); Nucleated Red Blood Cells % 0 %; Platelet Count 156 10^3/cmm (157-399); Red Blood Count 4.61 10^6/uL (3.85-5.65); White Blood Count 1.94 10^3/uL (3.29-11.43)
[2025-04-21 09:43] LABS: Alanine Aminotransferase 23 U/L (0-41); Albumin Level 3.8 g/dL (3.5-5.2); Alkaline Phosphatase 79 U/L (40-130); Anion Gap 14.5 (5-19); Aspartate Amino Transferase 20 U/L (0-40); Blood Urea Nitrogen 18 mg/dL (8-23); Calcium 8.6 mg/dL (8.5-10.5); Carbon Dioxide 25 mmol/L (22-29); Chloride 106 mmol/L (98-107); Globulin 2.5 g/dL (1.3-4.6); Glucose 92 mg/dL (65-115); Osmolality Calculated 296 mOsm/kg (285-295); Potassium 3.5 mmol/L (3.5-5.1); Sodium 142 mmol/L (136-145); Total Protein 6.3 g/dL (6.6-8.7)
[2025-04-28 08:43] LABS: Hematocrit 43.1 % (37-53); Hemoglobin 15.30 g/dL (11.27-16.99); Mean Corpuscular HGB Conc 35.5 g/dL (30-55); Mean Corpuscular Hemoglobin 31.5 pg (27-33); Mean Corpuscular Volume 88.9 fl (82-101); Platelet Count 190 10^3/cmm (157-399); Red Blood Count 4.85 10^6/uL (3.85-5.65); White Blood Count 5.57 10^3/uL (3.29-11.43)
[2025-04-28 09:04] LABS: Carcinoembryonic Antigen 2.1 ng/mL (0.0-4.7)
[2025-04-28 09:15] LABS: Alanine Aminotransferase 25 U/L (0-41); Albumin Level 3.8 g/dL (3.5-5.2); Alkaline Phosphatase 97 U/L (40-130); Anion Gap 13.6 (5-19); Aspartate Amino Transferase 21 U/L (0-40); Blood Urea Nitrogen 17 mg/dL (8-23); Calcium 8.9 mg/dL (8.5-10.5); Carbon Dioxide 25 mmol/L (22-29); Chloride 104 mmol/L (98-107); Creatinine Clr Calc Pharmacy 75.3813; Globulin 2.4 g/dL (1.3-4.6); Glucose 87 mg/dL (65-115); Osmolality Calculated 289 mOsm/kg (285-295); Potassium 3.6 mmol/L (3.5-5.1); Sodium 139 mmol/L (136-145); Total Protein 6.2 g/dL (6.6-8.7)
[2025-04-28 09:49] LABS: Absolute Segmented Neutrophil 2.1 10/cmm (1.6-7.1); Atypical Lymphs 7.0 % (0-5); Band Neutrophils Absolute 0.3 10^3/cmm (0.0-1.2); Slide Review Slide Review Perform; Total Cells Counted 100 (0-100)
[2025-04-28 09:50] LABS: Macrocytosis Trace
[2025-04-28] MEDS: dexamethasone 4 mg/mL INJ 5 mL 12 MG IVP (10:26)
[2025-04-28] MEDS: BEVACIZUMAB BVZR IV (10:41)
[2025-04-28] MEDS: [UNRECOGNIZED DRUG - OTHER] IV (10:41)
[2025-04-28] MEDS: atropine 1 mg/mL SDV 1 mL 0.4 MG IV (11:15)
[2025-04-28] MEDS: IRINOTECAN IV (11:45)
[2025-04-28] MEDS: leucovorin 900 MG in dextrose 5% 250 ML 166.67 MG IV (11:45)
[2025-04-28] MEDS: DEXTROSE 5% IV (11:45)
[2025-04-28 13:23] VITALS: BP 123/70; PULSE 64; RESP 17; TEMP 36.8; O2SAT 97
[2025-04-28] MEDS: FLUOROURACIL IV (13:29)
[2025-04-28] MEDS: fluorouraciL 50 mg/ml MDV 100 mL 800 MG IVP (13:29)
[2025-04-28] MEDS: ELASTOMERIC PUMP PUMP IV (13:29)
[2025-05-05 08:49] LABS: Hematocrit 44.4 % (37-53); Hemoglobin 15.50 g/dL (11.27-16.99); Mean Corpuscular HGB Conc 34.9 g/dL (30-55); Mean Corpuscular Hemoglobin 32.2 pg (27-33); Mean Corpuscular Volume 92.3 fl (82-101); Nucleated Red Blood Cells % 0 %; Platelet Count 144 10^3/cmm (157-399); Red Blood Count 4.81 10^6/uL (3.85-5.65); White Blood Count 20.38 10^3/uL (3.29-11.43)
[2025-05-05 09:06] LABS: Alanine Aminotransferase 17 U/L (0-41); Albumin Level 4.1 g/dL (3.5-5.2); Alkaline Phosphatase 126 U/L (40-130); Anion Gap 15.9 (5-19); Aspartate Amino Transferase 15 U/L (0-40); Blood Urea Nitrogen 25 mg/dL (8-23); Calcium 8.9 mg/dL (8.5-10.5); Carbon Dioxide 25 mmol/L (22-29); Chloride 105 mmol/L (98-107); Creatinine Clr Calc Pharmacy 90.4575; Globulin 2.4 g/dL (1.3-4.6); Glucose 82 mg/dL (65-115); Osmolality Calculated 297 mOsm/kg (285-295); Potassium 3.9 mmol/L (3.5-5.1); Sodium 142 mmol/L (136-145); Total Protein 6.5 g/dL (6.6-8.7)
[2025-05-05 09:58] VITALS: BP 114/64; PULSE 57; RESP 17; TEMP 36.9; O2SAT 95
[2025-05-12 07:57] LABS: Glucose Urine UA Negative (Normal); Nitrate Urine Negative (Negative); Specific Gravity, Urine 1.027 (1.005-1.030)
[2025-05-12 07:59] LABS: Hematocrit 40.8 % (37-53); Hemoglobin 14.30 g/dL (11.27-16.99); Mean Corpuscular HGB Conc 35.0 g/dL (30-55); Mean Corpuscular Hemoglobin 32.2 pg (27-33); Mean Corpuscular Volume 91.9 fl (82-101); Nucleated Red Blood Cells % 0 %; Platelet Count 198 10^3/cmm (157-399); Red Blood Count 4.44 10^6/uL (3.85-5.65); White Blood Count 4.20 10^3/uL (3.29-11.43)
[2025-05-12 08:02] LABS: Add Urine Microscopic? YES
[2025-05-12 08:16] LABS: Alanine Aminotransferase 35 U/L (0-41); Albumin Level 3.9 g/dL (3.5-5.2); Alkaline Phosphatase 103 U/L (40-130); Anion Gap 9.8 (5-19); Aspartate Amino Transferase 20 U/L (0-40); Blood Urea Nitrogen 35 mg/dL (8-23); Calcium 8.5 mg/dL (8.5-10.5); Carbon Dioxide 29 mmol/L (22-29); Chloride 106 mmol/L (98-107); Creatinine Clr Calc Pharmacy 75.0660; Globulin 2.3 g/dL (1.3-4.6); Glucose 93 mg/dL (65-115); Osmolality Calculated 300 mOsm/kg (285-295); Potassium 3.8 mmol/L (3.5-5.1); Sodium 141 mmol/L (136-145); Total Protein 6.2 g/dL (6.6-8.7)
[2025-05-12] MEDS: dexamethasone 4 mg/mL INJ 5 mL 12 MG IVP (09:23)
[2025-05-12] MEDS: BEVACIZUMAB BVZR IV (10:01)
[2025-05-12] MEDS: [UNRECOGNIZED DRUG - OTHER] IV (10:01)
[2025-05-12] MEDS: atropine 1 mg/mL SDV 1 mL 0.4 MG IV (10:37)
[2025-05-12] MEDS: leucovorin 880 MG in dextrose 5% 250 ML 166.67 MG IV (11:20)
[2025-05-12] MEDS: IRINOTECAN IV (11:21)
[2025-05-12] MEDS: DEXTROSE 5% IV (11:21)
[2025-05-12] MEDS: fluorouraciL 50 mg/ml MDV 100 mL 800 MG IVP (13:16)
[2025-05-12] MEDS: FLUOROURACIL IV (13:16)
[2025-05-12] MEDS: ELASTOMERIC PUMP PUMP IV (13:16)
[2025-05-12 13:25] VITALS: BP 136/79; PULSE 53; RESP 17; TEMP 36.2; O2SAT 93
== END 2025-05-12 23:59 | disposition home or self-care (01) ==
PROVIDERS: Internal Medicine Medical Oncology; PCP Family Medicine; Visit Provider Nurse Practitioner Family
DX: Z51.11 Encounter for antineoplastic chemotherapy; Z51.12 Encounter for antineoplastic immunotherapy; C18.2 Malignant neoplasm of ascending colon; C78.00 Secondary malignant neoplasm of unspecified lung; R03.0 Elevated blood-pressure reading, without diagnosis of hypertension; Z79.52 Long term (current) use of systemic steroids; Z79.631 Long term (current) use of antimetabolite agent; Z79.899 Other long term (current) drug therapy; Z87.891 Personal history of nicotine dependence; Z53.9 Procedure and treatment not carried out, unspecified reason
CPT/HCPCS: 36591; 80053; 81001; 82378; 85007; 85025; 96360; 96368; 96372; 96375; 96411; 96413; 96415; 96416; 96417; 96523; 99214; J0461; J0640; J1100; J2469; J7030; J7050; J7060; J9190; J9206; Q5101; Q5118

== ENCOUNTER 2025-05-15 11:30 | Oncology outpatient (recurring) (ONCR) | payer MEDICARE, OTHER, SELFPAY ==
[2025-05-14 12:06] VITALS: BP 117/72; PULSE 53; RESP 17; TEMP 35.9; O2SAT 94
[2025-05-14 13:30] VITALS: BP 138/75; PULSE 59; RESP 16; O2SAT 97
== END 2025-05-17 23:59 | disposition home or self-care (01) ==
PROVIDERS: PCP Family Medicine; Visit Provider Nurse Practitioner Family
DX: Z53.9 Procedure and treatment not carried out, unspecified reason (principal); C18.2 Malignant neoplasm of ascending colon; Z79.899 Other long term (current) drug therapy; T45.1X5A Adverse effect of antineoplastic and immunosuppressive drugs, initial encounter; D70.1 Agranulocytosis secondary to cancer chemotherapy; Z45.1 Encounter for adjustment and management of infusion pump; Z95.828 Presence of other vascular implants and grafts; Z51.11 Encounter for antineoplastic chemotherapy; Z51.12 Encounter for antineoplastic immunotherapy; C78.00 Secondary malignant neoplasm of unspecified lung; R03.0 Elevated blood-pressure reading, without diagnosis of hypertension; Z87.891 Personal history of nicotine dependence; Z79.52 Long term (current) use of systemic steroids; Z79.631 Long term (current) use of antimetabolite agent
CPT/HCPCS: 96360; 96372; 96523; J7030; Q5101

== ENCOUNTER 2025-06-08 08:00 | Oncology outpatient (recurring) (ONCR) | payer MEDICARE, OTHER, SELFPAY ==
[2025-05-26 07:55] LABS: Hematocrit 42.8 % (37-53); Hemoglobin 14.40 g/dL (11.27-16.99); Mean Corpuscular HGB Conc 33.6 g/dL (30-55); Mean Corpuscular Hemoglobin 32.3 pg (27-33); Mean Corpuscular Volume 96.0 fl (82-101); Nucleated Red Blood Cells % 0 %; Platelet Count 174 10^3/cmm (157-399); Red Blood Count 4.46 10^6/uL (3.85-5.65); White Blood Count 4.40 10^3/uL (3.29-11.43)
[2025-05-26 08:00] LABS: Glucose Urine UA Negative (Normal); Nitrate Urine Negative (Negative); Specific Gravity, Urine 1.024 (1.005-1.030)
[2025-05-26 08:05] LABS: Add Urine Microscopic? YES
[2025-05-26 08:23] LABS: Carcinoembryonic Antigen 2.0 ng/mL (0.0-4.7)
[2025-05-26 08:34] LABS: Alanine Aminotransferase 49 U/L (0-41); Albumin Level 4.2 g/dL (3.5-5.2); Alkaline Phosphatase 118 U/L (40-130); Anion Gap 17.0 (5-19); Aspartate Amino Transferase 33 U/L (0-40); Blood Urea Nitrogen 15 mg/dL (8-23); Calcium 8.9 mg/dL (8.5-10.5); Carbon Dioxide 27 mmol/L (22-29); Chloride 103 mmol/L (98-107); Globulin 2.6 g/dL (1.3-4.6); Glucose 80 mg/dL (65-115); Osmolality Calculated 296 mOsm/kg (285-295); Potassium 4.0 mmol/L (3.5-5.1); Sodium 143 mmol/L (136-145); Total Protein 6.8 g/dL (6.6-8.7)
[2025-05-26] MEDS: dexamethasone 4 mg/mL INJ 5 mL 12 MG IVP (10:13)
[2025-05-26] MEDS: [UNRECOGNIZED DRUG - OTHER] IV (10:17)
[2025-05-26] MEDS: BEVACIZUMAB BVZR IV (10:17)
[2025-05-26] MEDS: atropine 1 mg/mL SDV 1 mL 0.4 MG IV (11:03)
[2025-05-26] MEDS: IRINOTECAN IV (11:14)
[2025-05-26] MEDS: DEXTROSE 5% IV (11:14)
[2025-05-26] MEDS: leucovorin 900 MG in dextrose 5% 250 ML 166.67 MG IV (11:15)
[2025-05-26] MEDS: ELASTOMERIC PUMP PUMP IV (12:49)
[2025-05-26] MEDS: FLUOROURACIL IV (12:49)
[2025-05-26] MEDS: fluorouraciL 50 mg/ml MDV 100 mL 803 MG IVP (12:49)
[2025-05-26 12:51] VITALS: BP 117/67; PULSE 53; RESP 17; TEMP 36.3; O2SAT 53
[2025-06-08 08:02] LABS: Hematocrit 37.9 % (37-53); Hemoglobin 13.10 g/dL (11.27-16.99); Mean Corpuscular HGB Conc 34.6 g/dL (30-55); Mean Corpuscular Hemoglobin 33.9 pg (27-33); Mean Corpuscular Volume 98.2 fl (82-101); Nucleated Red Blood Cells % 0 %; Platelet Count 206 10^3/cmm (157-399); Red Blood Count 3.86 10^6/uL (3.85-5.65); White Blood Count 4.18 10^3/uL (3.29-11.43)
[2025-06-08 08:11] LABS: Glucose Urine UA Negative (Normal); Nitrate Urine Negative (Negative); Specific Gravity, Urine 1.015 (1.005-1.030)
[2025-06-08 08:14] LABS: Add Urine Microscopic? YES
[2025-06-08 08:32] LABS: Carcinoembryonic Antigen 3.7 ng/mL (0.0-4.7)
[2025-06-08 08:38] LABS: UA Slide Review UA Slide Review Perf
[2025-06-08 08:43] LABS: Alanine Aminotransferase 66 U/L (0-41); Albumin Level 3.9 g/dL (3.5-5.2); Alkaline Phosphatase 115 U/L (40-130); Anion Gap 16.8 (5-19); Aspartate Amino Transferase 42 U/L (0-40); Blood Urea Nitrogen 24 mg/dL (8-23); Calcium 9.0 mg/dL (8.5-10.5); Carbon Dioxide 24 mmol/L (22-29); Chloride 105 mmol/L (98-107); Creatinine Clr Calc Pharmacy 80.9133; Globulin 2.6 g/dL (1.3-4.6); Glucose 90 mg/dL (65-115); Osmolality Calculated 298 mOsm/kg (285-295); Potassium 3.8 mmol/L (3.5-5.1); Sodium 142 mmol/L (136-145); Total Protein 6.5 g/dL (6.6-8.7)
[2025-06-08] MEDS: dexamethasone 4 mg/mL INJ 5 mL 12 MG IVP (09:54)
[2025-06-08] MEDS: SODIUM CHLORIDE 0.9% IV (10:37)
[2025-06-08] MEDS: BEVACIZUMAB BVZR IV (10:37)
[2025-06-08] MEDS: atropine 1 mg/mL SDV 1 mL 0.4 MG IV (11:14)
[2025-06-08] MEDS: leucovorin 880 MG in dextrose 5% 250 ML 166.67 MG IV (11:16)
[2025-06-08] MEDS: DEXTROSE 5% IV (11:16)
[2025-06-08] MEDS: IRINOTECAN IV (11:16)
[2025-06-08] MEDS: fluorouraciL 50 mg/ml MDV 100 mL 876 MG IVP (13:58)
[2025-06-08] MEDS: ELASTOMERIC PUMP PUMP IV (13:58)
[2025-06-08] MEDS: FLUOROURACIL IV (13:58)
[2025-06-08] MEDS: SODIUM CHLORIDE IV (13:58)
[2025-06-08 14:14] VITALS: BP 136/70; PULSE 57; RESP 18; TEMP 36.4; O2SAT 96
== END 2025-06-08 23:59 | disposition home or self-care (01) ==
PROVIDERS: Internal Medicine Medical Oncology; PCP Family Medicine; Visit Provider Nurse Practitioner Family
DX: Z53.9 Procedure and treatment not carried out, unspecified reason; Z51.11 Encounter for antineoplastic chemotherapy; C18.2 Malignant neoplasm of ascending colon; C78.00 Secondary malignant neoplasm of unspecified lung; Z87.891 Personal history of nicotine dependence; Z90.49 Acquired absence of other specified parts of digestive tract; D70.1 Agranulocytosis secondary to cancer chemotherapy; T45.1X5A Adverse effect of antineoplastic and immunosuppressive drugs, initial encounter; J06.9 Acute upper respiratory infection, unspecified
CPT/HCPCS: 80053; 81001; 82378; 85025; 96361; 96368; 96372; 96375; 96411; 96413; 96415; 96416; 96417; 96523; 99214; J0461; J0640; J1100; J2469; J7030; J7050; J7060; J9190; J9206; Q5101; Q5118

== ENCOUNTER 2025-06-12 08:30 | Oncology outpatient (recurring) (ONCR) | payer MEDICARE, OTHER, SELFPAY ==
[2025-06-12 08:46] VITALS: BP 102/64; PULSE 65; RESP 16; TEMP 36.7; O2SAT 96
== END 2025-06-16 23:59 | disposition home or self-care (01) ==
PROVIDERS: PCP Family Medicine; Visit Provider Nurse Practitioner Family
DX: C18.9 Malignant neoplasm of colon, unspecified; C78.00 Secondary malignant neoplasm of unspecified lung; Z79.899 Other long term (current) drug therapy; Z53.9 Procedure and treatment not carried out, unspecified reason
CPT/HCPCS: 96365; 96372; 96523; J7030; Q5101

== ENCOUNTER 2025-06-30 10:07 | Emergency (ER) | payer MEDICARE, OTHER, SELFPAY ==
--- OUTSIDE RECORDS SUMMARY | 2024-09-25 09:15 | XMS_ITS ---
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 Name Role Phone Quincy Wade Primary Care Provider Joann BOURNE DAVID Unavailable [phone] REASON FOR VISIT 3-4 wks w/ ua Encounters Encounter Location Date Provider Diagnosis [facility] [address] [place] [address] 09/25/2024 DAVID BOURNE BPH (benign prostatic hyperplasia) N40.0 ; Flank pain R10.9 ; Family history of prostate cancer in father Z80.42 ; Low back pain M54.50 and Renal cyst, left N28.1 Assessments Encounter Date Diagnosis (ICD Code) Assessment Notes Treatment Notes Treatment Clinical Notes Section Notes 09/25/2024 BPH (benign prostatic hyperplasia) (ICD-10 - N40.0) 64 y/o M with BPH on Flomax and Finasteride. DERRICK shows a left renal cyst. 09/25/2024 Flank pain (ICD-10 - R10.9) 64 y/o M with BPH on Flomax and Finasteride. DERRICK shows a left renal cyst. 09/25/2024 Family history of prostate cancer in father (ICD-10 - Z80.42) 64 y/o M with BPH on Flomax and Finasteride. DERRICK shows a left renal cyst. 09/25/2024 Low back pain (ICD-10 - M54.50) 64 y/o M with BPH on Flomax and Finasteride. DERRICK shows a left renal cyst. 09/25/2024 Renal cyst, left (ICD-10 - N28.1) 64 y/o M with BPH on Flomax and Finasteride. DERRICK shows a left renal cyst. Plan Of Treatment No Information Progress Notes * Hugo ALMAZANDOB: [birth year] (65 yo M)Acc No.[id number]:09/25/2024 Patient: Hugo ST Provider: Fabienne BOURNE MD :1960 A ge:64 Y S ex:Male Date:09/25/2024 Address:[address] [place], [place] [id number] Pcp:Quincy Wade Subjective: * Chief Complaints: * 1 . 3-4 wks w/ ua. * HPI: * : 64yoM who is initially established care on 01/2024 for BPH and former patient of in . Continue flomax BID and finasteride.He reports history of distant kidney stone (2006) and BPH. He has been on tamsulosin and finasteride for 7-8 years and has not been pleased with current LUTS including weak stream, straining, hesitancy, intermittency, frequency, urgency, nocturia x 3-4. He has occasional UI. Previous findings of his IPSS is 33 with QOL of 6. He reports normal prostate cancer screening in the past with normal PSA and last completed a month ago and is scanned in to be 1.11. He reports family h/o prostate cancer in his father and paternal grandfather. He also reports he just underwent colon resection for colon cancer and is on active chemo for this. Returned on with complaints of low back pain x 1-2 days and concerned for passing nephrolithiasis. Reports to be taking norco from previous script and is already taking the flomax for BPH. He has been trying to increase fluid intake. All has not been beneficial. He also reports was diagnosed with arthritis in his back managed by provider in [facility]. DERRICK obtained 07/24/24 resulting inleft renal cyst otherwise normal Here today for 3 week f/u for further evaluation of the anatomy with Cystoscopy for BPH candidacy. * Medical History: Objective: * Vitals: Assessment: * Assessment: 1. B PH (benign prostatic hyperplasia) - N40.0 (Primary) 2 . F lank pain - R10.9 3 . F amily history of prostate cancer in father - Z80.42 S pecify :and paternal grandfather 4 . L ow back pain - M54.50 5 . R enal cyst, left - N28.1? 64 y/o M with BPH on Flomax and Finasteride. DERRICK shows a left renal cyst. Plan: * Treatment: * Billing Information: * Visit Code: * Procedure Codes: * Electronic signature of AUST IN MD TAYLA on 06/30/2025 at 10:47 AM CDT Sign off status: Pending * Provider: Fabienne BOURNE MD Date: 0 09/25/2024 Generated for Rk keller/Bharati/Georges on: 1 10:47 AM CDT History and Physical Notes * HPI (History of Present Illness) Category Sub-Category Detail Notes Category Not es 64yoM who is initially established care on 01/2024 for BPH and former patient of in . Continue flomax BID and finasteride. He reports history of distant kidney stone (2006) and BPH. He has been on tamsulosin and finasteride for 7-8 years and has not been pleased with current LUTS including weak stream, straining, hesitancy, intermittency, frequency, urgency, nocturia x 3-4. He has occasional UI. Previous findings of his IPSS is 33 with QOL of 6. He reports normal prostate cancer screening in the past with normal PSA and last completed a month ago and is scanned in to be 1.11. He reports family h/o prostate cancer in his father and paternal grandfather. He also reports he just underwent colon resection for colon cancer and is on active chemo for this. Returned on with complaints of low back pain x 1-2 days and concerned for passing nephrolithiasis. Reports to be taking norco from previous script and is already taking the flomax for BPH. He has been trying to increase fluid intake. All has not been beneficial. He also reports was diagnosed with arthritis in his back managed by provider in [facility]. DERRICK obtained 07/24/24 resulting in left renal cyst otherwise normal Here today for 3 week f/u for further evaluation of the anatomy with Cystoscopy for BPH candidacy
--- NOTE | 2025-06-30 10:08 | XR_ITS ---
WS: [id number] XR chest 1V portable [id number] REASON FOR EXAM: cp FINDINGS: Chemotherapy infusion port over the right chest with trans right subclavian vein infusion catheter into the distal SVC. The heart and the mediastinum are within normal limits. There are multiple pulmonary metastasis as demonstrated on the CT scan of the chest, abdomen abdomen, and pelvis 02/16/2025. Unable to determine if there is interval change. No other significant pulmonary parenchymal or pleural abnormality. No focal lesion of the bony thorax identified. XR/XR chest 1V portable [id number] IMPRESSION: Multiple pulmonary metastases as above.
--- NOTE | 2025-06-30 10:10 | ECG_ITS ---
[facility] Test Date: 2025-06-30 Pat Name: Hugo Tatum Department: Room: Gender: Male Obstetrician And Gynaecologist: : 1960 Requested By: Dianna Douglas Order Number: [id number] Clemente MD: Donald Santiago M.D. Measurements Intervals [place] Rate: 59 P: 44 AL: 162 QRS: 45 QRSD: 83 T: 47 QT: 462 QTc: 460 Interpretive Statements SINUS BRADYCARDIA PROLONGED QT INTERVAL No previous ECG available for comparison Electronically Signed On 07-01-2025 16:55:08 CDT by Donald Santiago M.D. [email or web address]
[2025-06-30 10:12] VITALS: BP 148/83; PULSE 58; RESP 16; TEMP 36.8; O2SAT 95; BMI 28.7
--- NOTE | 2025-06-30 10:18 | W.ED.CHESTPA ---
HPI - Chest Pain General: Chief Complaint: Chest Pain Stated Complaint: Chest Pains Time Seen by Provider: 06/30/25 10:15 Source: patient Mode of arrival: ambulatory Limitations: no limitations History of Present Illness: 65-year-old male history of colon cancer with mets to his lungs currently on chemotherapy. States he had lifted a 50 pound bag of corn yesterday and started having a sharp pain in the center of his chest states continue have a sharp pain mainly with movement or exertion. He denies any pain currently at rest denies any radiation of the pain denies any shortness of breath or fevers or cough. Related Data Home Medications ?Medication ?Instructions ?Recorded ?Confirmed cholecalciferol (vitamin D3) 125 125 mcg PO DAILY 02/20/24 06/30/25 mcg (5,000 unit) capsule esomeprazole magnesium 20 mg 20 mg PO QDAY PRN Acid Reflux 02/20/24 06/30/25 capsule,delayed release (Nexium 24HR) prednisone 10 mg tablet 10 mg PO DAILY 07/30/24 06/30/25 fptqctxs-hijmzpce-wcvlbjck zinc 1 cap PO DAILY 04/28/25 06/30/25 bisglycinate 250 mg-50 mg capsule ivermectin 6 mg tablet 50 mg PO DAILY 04/28/25 06/30/25 mebendazole 100 mg chewable tablet 100 mg PO DAILY 04/28/25 06/30/25 mecobalamin (vitamin B12) 5,000 5,000 mcg PO DAILY 04/28/25 06/30/25 mcg chewable tablet multivitamin, stress formula 1 tab PO DAILY 04/28/25 06/30/25 (Stress Formula tablet) ascorbic acid (vitamin C) 500 75 mg IV .twice weekly 05/26/25 06/30/25 mg/mL intravenous solution finasteride 5 mg tablet 5 mg PO DAILY 06/30/25 06/30/25 loratadine 10 mg tablet 10 mg PO DAILY 06/30/25 06/30/25 Previous Rx's ?Medication ?Instructions ?Recorded ferrous sulfate 325 mg (65 mg 325 mg PO DAILY anemia #90 tabs 09/20/23 iron) tablet lorazepam 1 mg tablet 0.5 - 1 mg (0.5 - 1 x 1 mg) PO Q6H 03/12/24 PRN Severe Nausea #30 tabs gabapentin 100 mg capsule 100 mg PO TID #90 caps 07/02/24 lidocaine-prilocaine 2.5 %-2.5 % 1 applic topical .COMPLEX #30 grams 03/09/25 topical cream tamsulosin 0.4 mg capsule See Rx Instructions .Route 03/10/25 .COMPLEX #180 caps diphenoxylate-atropine 2.5 2 tab PO QID PRN diarrhea #60 tabs 03/25/25 mg-0.025 mg tablet (Lomotil) ondansetron HCl 4 mg tablet 4 mg PO Q6H PRN nausea and 03/25/25 vomiting #30 tabs prochlorperazine maleate 10 mg 10 mg PO Q4H PRN Mild Nausea #30 03/25/25 tablet (Compazine) tabs Allergies Allergy/AdvReac Type Severity Reaction Status Date / Time No Known Allergies Allergy Verified 06/22/25 08:34 Review of Systems Card: Reports: chest pain PFSH ED PFSH: Medical History Colon cancer Ankylosing spondylitis Iron deficiency anemia Inflammatory arthritis Urinary urgency Nocturia Urolithiasis BPH loc w urin obs/LUTS Maximal medical therapy. Initially good response. Later increasing symptoms Calcium urolithiasis Family history of malignant neoplasm of prostate Father and paternal grandfather Surgical History History of testicular surgery UNDESCENDED H/O lithotripsy H/O wrist surgery History of appendectomy Status post cystoscopy with ureteral stent placement Status post wrist surgery tendon repair rt wrist S/P appendectomy Family History Family/Other Cancer Grandfather had Prostate CA Diabetes Hypertension Dementia Mother , at age 83 Parkinson disease Father Prostate cancer Father No problems noted. Mother No problems noted. Social History Smoking and tobacco/nicotine status: former use of tobacco/nicotine Quit status (tobacco/nicotine): has quit using Year quit tobacco: 1981 Former quit date comment: 40 years tatol tobacco use Alcohol intake: current Alcohol intake frequency: few times a month Substance/Drug Use: never Lives independently: No Household members: spouse Marital status: Current occupational status: employed Physical Exam Const: COMMON NORMALS: no acute distress, patient oriented x3 and healthy appearing HENMT: COMMON NORMALS: normocephalic and atraumatic HEAD & SCALP: normocephalic and atraumatic Eye: COMMON NORMALS: conjunctivae normal CONJUNCTIVA: Yes conjunctivae normal Neck/C-Spine: COMMON NORMALS: full ROM and supple Chest: COMMONS NORMALS: normal inspection of the chest and normal palpation of entire chest wall Resp: COMMON NORMALS: normal respiratory effort, No retractions, No use of accessory muscles and clear to auscultation bilaterally AUSCULTATION: clear to auscultation bilaterally Cardio: COMMON NORMALS: regular rate, regular rhythm and No murmurs present (Cardio) RATE: regular rate RHYTHM: regular rhythm GI: COMMON NORMALS: Normal to inspection, nondistended, normoactive bowel sounds present, Soft to palpation, non-tender and no masses PALPATION: Yes Soft to palpation Extremity: COMMON NORMALS: normal to inspection and full ROM Neuro: COMMON NORMALS: patient oriented x3, moves all extremities and no focal motor deficits Psych: COMMON NORMALS: mental status grossly normal, Normal thought process present and cooperative THOUGHT PROCESS: Normal thought process present Skin: COMMON NORMALS: no rashes or lesions noted and no wounds GENERAL SKIN EXAM: no rashes or lesions noted Course Vital Signs: Vital signs: Vital Signs Temperature 98.2 F 06/30/25 10:12 Pulse Rate 56 L 06/30/25 11:32 Respiratory Rate 16 06/30/25 11:32 Blood Pressure 166/89 06/30/25 11:32 Pulse Oximetry 96 06/30/25 11:32 Oxygen Delivery Me thod Room Air 06/30/25 10:46 MDM - Chest Pain Medical Decision Making Patient presents for chest pain going on for 2 days after lifting something. Differential included pulmonary emboli, ACS, aortic dissection, pneumothorax, pneumonia. These were all ruled out here he has no signs of a PE he has no shortness of breath no hypoxia no pain currently aortic dissection is very unlikely as well with no pain currently and x-ray was normal besides mets. His initial troponin here is negative his EKG showed sinus bradycardia heart rate [address] elevation QRS 83 QTc 461. With his history I believe ACS is very unlikely as likely muscular pain he stable for discharge he is follow-up with PCP and return if worsening he understands agrees to plan I did go over all his results with him and his family and they understand Medical Records I reviewed the patient's medical records. Lab Data I reviewed the patient's lab results. 06/30/25 10:06/30/25 10:25 Radiology Impressions Chest X-Ray 06/30/25 10:08 IMPRESSION: Multiple pulmonary metastases as above. Laboratory Results WBC 14.43 10^3/uL (3.29-11.43) H 06/30/25 10:25 RBC 3.44 10^6/uL (3.85-5.65) L 06/30/25 10:25 Hgb 11.90 g/dL (11.27-16.99) 06/30/25 10: Hct 34.9 % (37-53) L 06/30/25 10:25 MCV 101.5 fl (82-101) H 06/30/25 10:25 MCH 34.6 pg (27-33) H 06/30/25 10:25 MCHC 34.1 g/dL (30-55) 06/30/25 10:25 RDW 16.1 % (12.1-15.1) H 06/30/25 10:25 Plt Count 164 10^3/cmm (157-399) 06/30/25 10:25 MPV 9.8 fL (7.4-10.4) 06/30/25 10:25 Neut % (Auto) 69.5 % 06/30/25 10:25 Lymph % (Auto) 16.0 % 06/30/25 10:25 Ward % (Auto) 10.7 % 06/30/25 10:25 Eos % (Auto) 1.5 % 06/30/25 10:25 Baso % (Auto) 0.8 % 06/30/25 10:25 Neut # (Auto) 10.02 10^3/uL (1.8-7.7) H 06/30/25 10:25 Lymph # (Auto) 2.3 10^3/uL (0.8-4.8) 06/30/25 10:25 Ward # (Auto) 1.6 10^3/uL (0.2-0.9) H 06/30/25 10:25 Eos # (Auto) 0.2 10^3/uL (0.0-0.8) 06/30/25 10:25 Baso # (Auto) 0.1 10^3/uL (0.0-0.1) 06/30/25 10:25 Nucleated RBC % (auto) 0.1 % 06/30/25 10: Nucleated RBCs # 0.0 /100WBC 06/30/25 10:25 Sodium 146 mmol/L (136-145) H 06/30/25 10:25 Potassium 3.5 mmol/L (3.5-5.1) 06/30/25 10:25 Chloride 106 mmol/L (98-107) 06/30/25 10:25 Carbon Dioxide 28 mmol/L (22-29) 06/30/25 10:25 Anion Gap 15.5 (5-19) 06/30/25 10:25 BUN 16 mg/dL (8-23) 06/30/25 10:25 Creatinine 0.9 mg/dL (0.7-1.2) 06/30/25 10:25 GFR Calculation 84.7 mL/min (90-130) L 06/30/25 10:25 Glucose 89 mg/dL (65-115) 06/30/25 10:25 Calculated Osmolality 303 mOsm/kg (285-295) H 06/30/25 10:25 Calcium 8.6 mg/dL (8.5-10.5) 06/30/25 10:25 Total Bilirubin 1.0 mg/dL (0.15-1.2) 06/30/25 10:25 AST 30 U/L (0-40) 06/30/25 10:25 ALT 37 U/L (0-41) 06/30/25 10:25 Alkaline Phosphatase 128 U/L (40-130) 06/30/25 10:25 Troponin T Baseline 9 ng/L (0-15) 06/30/25 10:25 Total Protein 6.0 g/dL (6.6-8.7) L 06/30/25 10:25 Albumin 3.9 g/dL (3.5-5.2) 06/30/25 10:25 Globulin 2.1 g/dL (1.3-4.6) 06/30/25 10:25 Lipase 17 U/L (13-60) 06/30/25 10:25 All radiology interpretation(s) finalized by discharge EKG Data EKG 1: I personally reviewed and interpreted this EKG as follows: EKG interpretation date: 06/30/25 EKG interpretation time: 10:10 Interpretation: sinus carleen hr [address] elevation qrs 83 qtc 461 Discharge Plan Discharge Patient Disposition: Home Clinical Impression: Chest pain Condition: Stable Prescriptions: No Action esomeprazole magnesium [Nexium 24HR] 20 mg capsule,delayed release(DR/EC) 20 mg PO QDAY PRN (Reason: Acid Reflux) cholecalciferol (vitamin D3) 125 mcg (5,000 unit) capsule 125 mcg PO DAILY lorazepam 1 mg tablet 0.5 - 1 mg PO Q6H PRN (Reason: Severe Nausea) Qty: 30 3RF gabapentin 100 mg capsule 100 mg PO TID Qty: 90 0RF prednisone 10 mg tablet 10 mg PO DAILY mebendazole 100 mg tablet,chewable 100 mg PO DAILY ivermectin 6 mg tablet 50 mg PO DAILY Stress Formula Tablet 1 tab PO DAILY xbqrqiyo-qxxccpwa-dcwodbnm znc 250-50 mg capsule 1 cap PO DAILY mecobalamin (vitamin B12) 5,000 mcg tablet,chewable 5,000 mcg PO DAILY ascorbic acid (vitamin C) 500 mg/mL solution 75 mg IV .twice weekly ferrous sulfate 325 mg (65 mg iron) tablet 325 mg PO DAILY Qty: 90 0RF lidocaine-prilocaine 2.5-2.5 % cream 1 applic topical .COMPLEX Qty: 30 2RF Rx Instructions: Apply quarter-size amount to port site 30 minutes prior to access; cover with cling wrap tamsulosin 0.4 mg capsule See Rx Instructions .ROUTE .COMPLEX Qty: 180 3RF Dose Instruction: TAKE 1 CAPSULE BY MOUTH TWICE DAILY Rx Instructions: TAKE 1 CAPSULE BY MOUTH TWICE DAILY ondansetron HCl 4 mg tablet 4 mg PO Q6H PRN (Reason: nausea and vomiting) Qty: 30 3RF diphenoxylate-atropine [Lomotil] 2.5-0.025 mg tablet 2 tab PO QID MDD 8 tab PRN (Reason: diarrhea) Qty: 60 3RF Rx Instructions: 2 tabs orally 4xdaily until control of diarrhea prochlorperazine maleate [Compazine] 10 mg tablet 10 mg PO Q4H PRN (Reason: Mild Nausea) Qty: 30 3RF finasteride 5 mg tablet 5 mg PO DAILY loratadine 10 mg tablet 10 mg PO DAILY Discharge Orders: Discharge ED (Routine); Ordered 06/30/25 Ordered By: Dianna Douglas Referrals: Quincy Wade DO [Primary Care Provider, [facility]] - 4-7 days Discharge Diet: Advance as tolerated Discharge Activity: Resume usual activity Patient Instructions: Chest Pain (ED) Print Language: Colombian Coding Level of Care Code ED Field Associate for Chg Fwd Heart Score HEART Score Components History: Slightly Suspicous EKG: Normal Age: 65 or more yrs Risk Factors: 1 or 2 Risk Factors Troponin: Baseline Trop <16 ng/L HEART Score RESULT HEART Score: 3
[2025-06-30 10:35] LABS: Hematocrit 34.9 % (37-53); Hemoglobin 11.90 g/dL (11.27-16.99); Mean Corpuscular HGB Conc 34.1 g/dL (30-55); Mean Corpuscular Hemoglobin 34.6 pg (27-33); Mean Corpuscular Volume 101.5 fl (82-101); Nucleated Red Blood Cells % 0.1 %; Platelet Count 164 10^3/cmm (157-399); Red Blood Count 3.44 10^6/uL (3.85-5.65); White Blood Count 14.43 10^3/uL (3.29-11.43)
[2025-06-30 10:46] VITALS: BP 159/83; PULSE 57; RESP 18; O2SAT 96
--- OUTSIDE RECORDS SUMMARY | 2025-06-30 10:47 | XMS_ITS | Clinical Summary ---
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
--- OUTSIDE RECORDS SUMMARY | 2025-06-30 10:47 | XMS_ITS | Patient Health Record ---
Author Organization [facility] Address [address] [place] [address] Care Team Providers Care J2Ee Architect Name Role Phone Quincy Wade Primary Care Provider Andrea Covington Unavailable Allergies No Known Allergies Reason For Referral No Information Medications Medication SIG (Take, Route, Frequency, Duration) Notes Start Date End Date Status Vitamin D 125 MCG (5000 UT) Capsule 1 capsule Orally Once a day Active Tamsulosin HCl 0.4 MG Capsule 1 capsule Orally Once a day Active Finasteride 5 MG Tablet 1 tablet Orally Once a day Active FeroSul 325 (65 Fe) MG Tablet 1 tablet Orally Daily Active predniSONE 2.5 MG Tablet 1 tablet Orally Once a day Active Ixekizumab 80 MG/ML Solution Auto-injector as directed Subcutaneous Active Social History Tobacco Use: Social History Observation Description Date Details (start date - stop date) Former Smoker NA - NA Social History Drugs/Alcohol: Social Info Question Answer Notes Drugs Have you used drugs other than those for medical reasons in the past 12 months? No Drug/Alcohol: Social Info Question Answer Notes AUDIT-C (Standard) Did you have a drink containing alcohol in the past year? No Points 0 Interpretation Negative Tobacco Use: Social Info Question Answer Notes Tobacco Control (Standard) Tobacco use: Former smoker How long has it been since you last smoked? Greater than 10 years Problems Problem Type SNOMED Code ICD Code Onset Dates Problem Status W/U Status Risk Notes Problem Hematochezia (675311066) Hematochezia (K92.1) Active confirmed Problem Dysphagia (97361938) Dysphagia, unspecified type (R13.10) Active confirmed Problem Daytime somnolence (533643909830) Daytime somnolence (R40.0) Active confirmed Problem Malignant neoplasm of colon (191485700) Malignant neoplasm of colon, unspecified part of colon (C18.9) Active confirmed Problem Benign prostatic hypertrophy without outflow obstruction (444132552) Benign prostatic hyperplasia, unspecified whether lower urinary tract symptoms present (N40.0) Active confirmed Problem Primary adenocarcinoma of ascending colon (515149317711124) Primary adenocarcinoma of ascending colon (C18.2) Active confirmed Problem Erosive gastritis (1667816335002695 ) Erosive gastritis (K29.60) Active confirmed Problem Heartburn (79344566) Chronic heartburn (R12) Active confirmed Problem 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) Atypical mole (238.2) 04/04/20 06 Active confirmed [facility] [id number] Plan Of Treatment No Information Insurance Providers Payer Name Payer Address Payer Phone Subscriber Number Group Number Insured Name Patient Relationship to Insured Coverage Start Date Coverage End Date [employer] [address] [place] [address] [id number] Hugo Tatum Self - patient is the insured Medical (General) History Medical History History ICD Code UNREMARKABLE ankylosing spondylitis kidney stones colon cancer Surgical History Surgery Date(Month/Year) Appendectomy: 1964; undescen ded testicle 1970;right wrist surgery 2003; undescended testicle 1970 R thumb surgery EGD Colonoscopy
--- OUTSIDE RECORDS SUMMARY | 2025-06-30 10:48 | XMS_ITS | Clinical Summary ---
Author Organization [facility] Address [address] [place] [address] Phone Care Team Providers Care Keyboard Specialist Name Role Phone Unavailable Primary Care Provider Unavailabl e Allergies No known active allergies Medications oxyCODONE-acetam inophen (PERCOCET) 10-325 mg Oral Tab Take 1 Tab by mouth every 4 hours as needed for Pain. 20 Tab None 04/11/2010 Active promethazine (PHENERGAN) 25 mg Oral tablet Take 1 Tab by mouth every 8 hours as needed for Nausea. 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[employer] Gender Identity Not on file Sexual Orientation Not on file Last Filed Vital Signs Vital Sign Reading Time Taken Comments Blood Pressure 128/74 04/11/2010 1:00 AM CDT Pulse 84 04/11/2010 1:00 AM CDT Temperature 36.3 C (97.4 F) 04/10/2010 9:47 PM CDT Respiratory Rate 17 04/11/2010 1:00 AM CDT Oxygen Saturation 94% 04/11/2010 1:00 AM CDT Inhaled Oxygen Concentration - - Weight 99.8 kg (220 lb) 04/10/2010 9:47 PM CDT Height 182.9 cm (6') 04/10/2010 9:47 PM CDT Body Mass Index 29.84 04/10/2010 9:47 PM CDT Plan of Treatment Health Maintenance Due Date [...] ) (1 - 1-dose 75+ series) 02/27/2035 Insurance [employer] SFD PPO
--- OUTSIDE RECORDS SUMMARY | 2025-06-30 10:48 | XMS_ITS | Patient Health Record ---
Author Organization [facility] Address [address] [place] [address] Care Team Providers Care Quantitative Analyst Developer Name Role Phone Quincy Wade Primary Care Provider Joann STRAUSSDAVID Unavailable [phone] Allergies No Known Allergies Results Component Value Reference Range Notes zzzCT Outside CD Reviewed date:2025 11:06:58 AM Interpretation: Performing Lab: Notes/Report: Outside Films Only. No report for these images. FINAL REPORT Read Outside Films Only. No report for these images. Reason For Referral No Information Medications Medication SIG (Take, Route, Frequency, Duration) Notes Start Date End Date Status Finasteride 5 MG 1 tablet Orally Once a day Active Iron 325 (65 Fe) MG 1 tablet Orally Three times a Week Active predniSONE 2.5 MG 1 tablet Orally Once a day Active Vitamin D3 50 MCG (1999 UT) 1 capsule Orally Once a day Active Pantoprazole Sodium 40 MG 1 tablet Orally Once a day Not-Taking Misc. Devices - as directed FOLFOX CHEMO Active Loratadine 10 MG 1 tablet Orally Once a day Active Tamsulosin HCl 0.4 MG 1 capsule Orally Once a day Active Ixekizumab 80 MG/ML as directed Subcutaneous Not-Taking Social History Tobacco Use: Social History Observation Description Date Details (start date - stop date) Former Smoker NA - NA Tobacco Control (Standard) Question Answer Notes Tobacco use: Former smoker Problems Problem Type SNOMED Code ICD Code Onset Dates Problem Status W/U Status Risk Notes Problem Benign prostatic hyperplasia (751100114) BPH (benign prostatic hyperplasia) (N40.0) Active confirmed Problem Family history of prostate cancer (288365501) Family history of prostate cancer in father (Z80.42) Active confirmed Problem 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) Renal cyst, left (N28.1) Active confirmed Problem 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 [address] 07/24/2024 DAVID STRAUSS BPH (benign prostatic hyperplasia) N40.0 ; Flank pain R10.9 ; Family history of prostate cancer in father Z80.42 ; Low back pain M54.50 and Renal cyst, left N28.1 [facility], [place] [address] [place] [address] 09/25/2024 DAVID STRAUSS Assessments Encounter Date Diagnosis (ICD Code) Assessment Notes Treatment Notes Treatment Clinical Notes Section Notes 07/24/2024 BPH (benign prostatic hyperplasia) (ICD-10 - N40.0) 64 y/o M with BPH on Flomax and Finasteride. DERRICK shows a left renal cyst. DERRICK obtained today resulting in left renal cyst otherwise normal. Pt wants to continue Chemo for Colon cancer in [place]. Will wait to treat BPH until after he completes his chemo. He will return in 3-4weeks with Cystoscopy for BPH candidacy. Pt agrees to plan of care and all question were answered. Plan: continue flomax and proscar -RTC in 1 month for Cystoscopy -BPH pamphlets given today Geovanna Pickens Scribe, am scribing for, and in the presence of, Dr. Strauss. I, Dr. David Strauss, personally performed the services prescribed in this documentation, as scribed by Geovanna Rubio, in my presence, and it is both accurate and complete. 07/24/2024 Flank pain (ICD-10 - R10.9) 64 y/o M with BPH on Flomax and Finasteride. DERRICK shows a left renal cyst. DERRICK obtained today resulting in left renal cyst otherwise normal. Pt wants to continue Chemo for Colon cancer in [place]. Will wait to treat BPH until after he completes his chemo. He will return in 3-4weeks with Cystoscopy for BPH candidacy. Pt agrees to plan of care and all question were answered. Plan: continue flomax and proscar -RTC in 1 month for Cystoscopy -BPH pamphlets given today Geovanna Pickens, [place], am scribing for, and in the presence of, Dr. Strauss. I, Dr. David Strauss, personally performed the services prescribed in this documentation, as scribed by Geovanna Rubio, in my presence, and it is both accurate and complete. 07/24/2024 Family history of prostate cancer in father (ICD-10 - Z80.42) 64 y/o M with BPH on Flomax and Finasteride. DERRICK shows a left renal cyst. DERRICK obtained today resulting in left renal cyst otherwise normal. Pt wants to continue Chemo for Colon cancer in [place]. Will wait to treat BPH until after he completes his chemo. He will return in 3-4weeks with Cystoscopy for BPH candidacy. Pt agrees to plan of care and all question were answered. Plan: continue flomax and proscar -RTC in 1 month for Cystoscopy -BPH pamphlets given today Geovanna Pickens, [place], am scribing for, and in the presence of, Dr. Strauss. I, Dr. David Strauss, personally performed the services prescribed in this documentation, as scribed by Geovanna Rubio, in my presence, and it is both accurate and complete. 07/24/2024 Low back pain (ICD-10 - M54.50) 64 y/o M with BPH on Flomax and Finasteride. DERRICK shows a left renal cyst. DERRICK obtained today resulting in left renal cyst otherwise normal. Pt wants to continue Chemo for Colon cancer in [place]. Will wait to treat BPH until after he completes his chemo. He will return in 3-4weeks with Cystoscopy for BPH candidacy. Pt agrees to plan of care and all question were answered. Plan: continue flomax and proscar -RTC in 1 month for Cystoscopy -BPH pamphlets given today Geovanna Pikcens Scribe, am scribing for, and in the presence of, Dr. Strauss. I, Dr. David Strauss, personally performed the services prescribed in this documentation, as scribed by Geovanna Rubio, in my presence, and it is both accurate and complete. 07/24/2024 Renal cyst, left (ICD-10 - N28.1) 64 y/o M with BPH on Flomax and Finasteride. DERRICK shows a left renal cyst. DERRICK obtained today resulting in left renal cyst otherwise normal. Pt wants to continue Chemo for Colon cancer in [place]. Will wait to treat BPH until after he completes his chemo. He will return in 3-4weeks with Cystoscopy for BPH candidacy. Pt agrees to plan of care and all question were answered. Plan: continue flomax and proscar -RTC in 1 month for Cystoscopy -BPH pamphlets given today Geovanna Pickens Scribe, am scribing for, and in the presence of, Dr. Strauss. I, Dr. David Strauss, personally performed the services prescribed in this documentation, as scribed by Geovanna Rubio, in my presence, and it is both accurate and complete. 09/25/2024 64 y/o M with BPH on Flomax and Finasteride. DERRICK shows a left renal cyst. Plan Of Treatment Pending Test Test Name Order Date Renal Ultrasound DERRICK [id number] 03/21/2024 PSA, TOTAL (5363) 02/07/2024 UroFlow 07/24/2024 Insurance Providers Payer Name Payer Address Payer Phone Subscriber Number Group Number Insured Name Patient Relationship to Insured Coverage Start Date Coverage End Date [address] [place] [id number] Hugo Tatum Self - patient is the insured Medications Administered Medication Instructions Date of Administration Dosage Notes Ketorolac Tromethamine 03/21/2024 30 mg ND C# [id number] Medical (General) History Medical History History ICD Code arthritis colon cancer difficulty urinating kidney stones up x 3 HS to void weak urinary stream Surgical History Surgery Date(Month/Year) Appendectomy: 1964; undescen ded testicle 1970;right wrist surgery 2003; undescended testicle 1970 kidney stone 2006 port placement Hospitalization History Reason Date(Month/Year) see above
[2025-06-30 10:49] LABS: Troponin(5th) Baseline 9 ng/L (0-15)
[2025-06-30 10:55] LABS: Alanine Aminotransferase 37 U/L (0-41); Albumin Level 3.9 g/dL (3.5-5.2); Alkaline Phosphatase 128 U/L (40-130); Anion Gap 15.5 (5-19); Aspartate Amino Transferase 30 U/L (0-40); Blood Urea Nitrogen 16 mg/dL (8-23); Calcium 8.6 mg/dL (8.5-10.5); Carbon Dioxide 28 mmol/L (22-29); Chloride 106 mmol/L (98-107); Creatinine Clr Calc Pharmacy 95.5509; Globulin 2.1 g/dL (1.3-4.6); Glucose 89 mg/dL (65-115); Lipase 17 U/L (13-60); Osmolality Calculated 303 mOsm/kg (285-295); Potassium 3.5 mmol/L (3.5-5.1); Sodium 146 mmol/L (136-145); Total Protein 6.0 g/dL (6.6-8.7)
[2025-06-30 10:56] LABS: Slide Review Slide Review Perform
[2025-06-30 11:12] VITALS: BP 166/89; PULSE 64; RESP 17; O2SAT 96
[2025-06-30 11:32] VITALS: BP 166/89; PULSE 56; RESP 16; O2SAT 96
== END 2025-06-30 11:34 | disposition home or self-care (01) ==
PROVIDERS: Emergency Provider Emergency Medicine; PCP Family Medicine
DX: R07.9 Chest pain, unspecified (principal); Z87.891 Personal history of nicotine dependence; Z85.038 Personal history of other malignant neoplasm of large intestine; C78.00 Secondary malignant neoplasm of unspecified lung
CPT/HCPCS: 36415; 71045; 80053; 83690; 84484; 85025; 93005; 99285

== ENCOUNTER 2025-07-06 08:10 | Oncology outpatient (recurring) (ONCR) | payer MEDICARE, OTHER, SELFPAY ==
[2025-06-22 08:27] LABS: Hematocrit 37.6 % (37-53); Hemoglobin 12.90 g/dL (11.27-16.99); Mean Corpuscular HGB Conc 34.3 g/dL (30-55); Mean Corpuscular Hemoglobin 34.2 pg (27-33); Mean Corpuscular Volume 99.7 fl (82-101); Platelet Count 174 10^3/cmm (157-399); Red Blood Count 3.77 10^6/uL (3.85-5.65); White Blood Count 3.58 10^3/uL (3.29-11.43)
[2025-06-22 09:00] LABS: Carcinoembryonic Antigen 4.6 ng/mL (0.0-4.7)
[2025-06-22 09:11] LABS: Alanine Aminotransferase 50 U/L (0-41); Albumin Level 3.9 g/dL (3.5-5.2); Alkaline Phosphatase 110 U/L (40-130); Anion Gap 15.5 (5-19); Aspartate Amino Transferase 29 U/L (0-40); Blood Urea Nitrogen 18 mg/dL (8-23); Calcium 8.6 mg/dL (8.5-10.5); Carbon Dioxide 26 mmol/L (22-29); Chloride 106 mmol/L (98-107); Creatinine Clr Calc Pharmacy 98.2639; Globulin 2.2 g/dL (1.3-4.6); Glucose 89 mg/dL (65-115); Osmolality Calculated 299 mOsm/kg (285-295); Potassium 3.5 mmol/L (3.5-5.1); Sodium 144 mmol/L (136-145); Total Protein 6.1 g/dL (6.6-8.7)
[2025-06-22 09:32] LABS: Slide Review Slide Review Perform
[2025-06-22 09:33] LABS: Absolute Segmented Neutrophil 1.6 10/cmm (1.6-7.1); Atypical Lymphs 21.0 % (0-5); Band Neutrophils Absolute 0.0 10^3/cmm (0.0-1.2); Total Cells Counted 100 (0-100)
[2025-06-22 09:36] LABS: Add Urine Microscopic? YES; Glucose Urine UA Norm (Normal); Nitrate Urine Negative (Negative); Specific Gravity, Urine 1.020 (1.005-1.030); UA Manual Slide Review YES; UA Slide Review UA Slide Review Perf
[2025-06-22] MEDS: dexamethasone 4 mg/mL INJ 5 mL 12 MG IVP (10:06)
[2025-06-22] MEDS: BEVACIZUMAB BVZR IV (10:54)
[2025-06-22] MEDS: SODIUM CHLORIDE 0.9% IV (10:54)
[2025-06-22] MEDS: atropine 1 mg/mL SDV 1 mL 0.4 MG IV (11:34)
[2025-06-22] MEDS: DEXTROSE 5% IV (12:00)
[2025-06-22] MEDS: IRINOTECAN IV (12:00)
[2025-06-22] MEDS: leucovorin 880 MG in dextrose 5% 250 ML 225.33 MG IV (12:00)
--- NOTE | 2025-06-22 14:01 | PC.PHAR ---
rina and oriana approached my office. they both noticed that patient's 90% dose reduction wasn't included in today's tx. rina asked that i adjust those medications that haven't been given today to 90%. Also, i've placed in draft future cycles at 90%.
[2025-06-22 14:05] VITALS: BP 146/75; PULSE 58; RESP 17; TEMP 36.5; O2SAT 97
[2025-06-22] MEDS: fluorouraciL 4,700 MG in elastomeric pump 1 PUMP IV (14:31)
[2025-06-22] MEDS: fluorouraciL 50 mg/ml MDV 100 mL 775 MG IV (14:32)
[2025-07-06 08:23] LABS: Add Urine Microscopic? NO
[2025-07-06 08:32] LABS: Glucose Urine UA Negative (Normal); Nitrate Urine Negative (Negative); Specific Gravity, Urine 1.019 (1.005-1.030)
[2025-07-06 08:57] LABS: Hematocrit 37.1 % (37-53); Hemoglobin 12.70 g/dL (11.27-16.99); Mean Corpuscular HGB Conc 34.2 g/dL (30-55); Mean Corpuscular Hemoglobin 34.7 pg (27-33); Mean Corpuscular Volume 101.4 fl (82-101); Nucleated Red Blood Cells % 0 %; Platelet Count 145 10^3/cmm (157-399); Red Blood Count 3.66 10^6/uL (3.85-5.65); White Blood Count 4.20 10^3/uL (3.29-11.43)
[2025-07-06 09:24] LABS: Charge for UA Resulting for Rev
[2025-07-06 09:25] LABS: Carcinoembryonic Antigen 2.5 ng/mL (0.0-4.7)
[2025-07-06 09:36] LABS: Alanine Aminotransferase 27 U/L (0-41); Albumin Level 3.9 g/dL (3.5-5.2); Alkaline Phosphatase 109 U/L (40-130); Anion Gap 13.4 (5-19); Aspartate Amino Transferase 21 U/L (0-40); Blood Urea Nitrogen 20 mg/dL (8-23); Calcium 8.8 mg/dL (8.5-10.5); Carbon Dioxide 29 mmol/L (22-29); Chloride 104 mmol/L (98-107); Creatinine Clr Calc Pharmacy 97.9880; Globulin 2.1 g/dL (1.3-4.6); Glucose 80 mg/dL (65-115); Osmolality Calculated 298 mOsm/kg (285-295); Potassium 3.4 mmol/L (3.5-5.1); Sodium 143 mmol/L (136-145); Total Protein 6.0 g/dL (6.6-8.7)
[2025-07-06] MEDS: dexamethasone 4 mg/mL INJ 5 mL 12 MG IVP (10:40)
[2025-07-06] MEDS: BEVACIZUMAB BVZR IV (11:09)
[2025-07-06] MEDS: SODIUM CHLORIDE 0.9% IV (11:09)
[2025-07-06] MEDS: atropine 1 mg/mL SDV 1 mL 0.4 MG IV (11:51)
[2025-07-06] MEDS: leucovorin 860 MG in dextrose 5% 250 ML 224 MG IV (12:05)
[2025-07-06] MEDS: DEXTROSE 5% IV (12:05)
[2025-07-06] MEDS: IRINOTECAN IV (12:05)
[2025-07-06] MEDS: fluorouraciL 50 mg/ml MDV 100 mL 775 MG IVP (14:00)
[2025-07-06] MEDS: fluorouraciL 4,650 MG in elastomeric pump 1 PUMP IV (14:01)
[2025-07-06 14:11] VITALS: BP 148/81; PULSE 59; RESP 18; TEMP 36.3; O2SAT 96
== END 2025-07-06 23:59 | disposition home or self-care (01) ==
PROVIDERS: Nurse Practitioner; PCP Family Medicine; Visit Provider Nurse Practitioner Family
DX: Z51.11 Encounter for antineoplastic chemotherapy; Z51.12 Encounter for antineoplastic immunotherapy; C18.2 Malignant neoplasm of ascending colon; C78.00 Secondary malignant neoplasm of unspecified lung; R03.0 Elevated blood-pressure reading, without diagnosis of hypertension; Z79.899 Other long term (current) drug therapy; Z79.52 Long term (current) use of systemic steroids; Z79.631 Long term (current) use of antimetabolite agent; Z87.891 Personal history of nicotine dependence; Z53.9 Procedure and treatment not carried out, unspecified reason
CPT/HCPCS: 80053; 81001; 81003; 82378; 85007; 85025; 96360; 96368; 96372; 96375; 96411; 96413; 96415; 96416; 96417; 96523; 99214; J0461; J0640; J1100; J2469; J7030; J7050; J7060; J9190; J9206; Q5101; Q5118

== ENCOUNTER 2025-07-13 08:14 | Oncology outpatient (recurring) (ONCR) | payer MEDICARE, OTHER, SELFPAY | END 2025-07-17 23:59 | disposition home or self-care (01) | PROVIDERS: PCP Family Medicine; Visit Provider Nurse Practitioner Family | DX: Z53.9 Procedure and treatment not carried out, unspecified reason (principal); C18.2 Malignant neoplasm of ascending colon; C78.00 Secondary malignant neoplasm of unspecified lung; Z79.899 Other long term (current) drug therapy; Z45.1 Encounter for adjustment and management of infusion pump; Z95.828 Presence of other vascular implants and grafts; Z51.11 Encounter for antineoplastic chemotherapy; Z51.12 Encounter for antineoplastic immunotherapy; R03.0 Elevated blood-pressure reading, without diagnosis of hypertension; J06.9 Acute upper respiratory infection, unspecified; Z87.891 Personal history of nicotine dependence; Z79.52 Long term (current) use of systemic steroids; Z79.631 Long term (current) use of antimetabolite agent | CPT/HCPCS: 96372; 96523; Q5101 ==

== ENCOUNTER 2025-08-03 08:00 | Oncology outpatient (recurring) (ONCR) | payer MEDICARE, OTHER, SELFPAY ==
[2025-07-20 08:30] LABS: Hematocrit 41.4 % (37-53); Hemoglobin 14.10 g/dL (11.27-16.99); Mean Corpuscular HGB Conc 34.1 g/dL (30-55); Mean Corpuscular Hemoglobin 35.6 pg (27-33); Mean Corpuscular Volume 104.5 fl (82-101); Nucleated Red Blood Cells % 0 %; Platelet Count 219 10^3/cmm (157-399); Red Blood Count 3.96 10^6/uL (3.85-5.65); White Blood Count 3.82 10^3/uL (3.29-11.43)
[2025-07-20 08:31] LABS: Glucose Urine UA Negative (Normal); Nitrate Urine Negative (Negative); Specific Gravity, Urine 1.023 (1.005-1.030)
[2025-07-20 08:36] LABS: Add Urine Microscopic? YES
[2025-07-20 09:24] LABS: Alanine Aminotransferase 21 U/L (0-41); Albumin Level 4.2 g/dL (3.5-5.2); Alkaline Phosphatase 109 U/L (40-130); Anion Gap 12.4 (5-19); Aspartate Amino Transferase 20 U/L (0-40); Blood Urea Nitrogen 19 mg/dL (8-23); Calcium 9.2 mg/dL (8.5-10.5); Carbon Dioxide 30 mmol/L (22-29); Chloride 106 mmol/L (98-107); Globulin 2.5 g/dL (1.3-4.6); Glucose 91 mg/dL (65-115); Osmolality Calculated 302 mOsm/kg (285-295); Potassium 3.4 mmol/L (3.5-5.1); Sodium 145 mmol/L (136-145); Total Protein 6.7 g/dL (6.6-8.7)
[2025-07-20] MEDS: dexamethasone 4 mg/mL INJ 5 mL 12 MG IVP (09:46)
[2025-07-20 09:53] VITALS: BP 158/90; PULSE 54; RESP 16; TEMP 36.7; O2SAT 95
[2025-07-20] MEDS: atropine 1 mg/mL SDV 1 mL 0.4 MG IV (10:49)
[2025-07-20] MEDS: IRINOTECAN IV (10:58)
[2025-07-20] MEDS: DEXTROSE 5% IV (10:58)
[2025-07-20] MEDS: leucovorin 860 MG in dextrose 5% 250 ML 224 MG IV (10:59)
[2025-07-20] MEDS: fluorouraciL 50 mg/ml MDV 100 mL 770 MG IVP (12:49)
[2025-07-20] MEDS: FLUOROURACIL IV (12:50)
[2025-07-20] MEDS: SODIUM CHLORIDE IV (12:50)
[2025-07-20] MEDS: ELASTOMERIC PUMP PUMP IV (12:50)
[2025-07-20 13:04] VITALS: BP 142/74; PULSE 65; RESP 18; TEMP 36.2; O2SAT 96
[2025-07-20 14:47] LABS: Carcinoembryonic Antigen 2.7 ng/mL (0.0-4.7)
[2025-07-22 12:45] VITALS: BP 156/76; PULSE 85; RESP 17; TEMP 36.1; O2SAT 97
[2025-07-22 14:00] VITALS: BP 163/77; PULSE 53; RESP 17; TEMP 36.1; O2SAT 99
[2025-08-03 08:21] LABS: Hematocrit 42.2 % (37-53); Hemoglobin 14.60 g/dL (11.27-16.99); Mean Corpuscular HGB Conc 34.6 g/dL (30-55); Mean Corpuscular Hemoglobin 34.8 pg (27-33); Mean Corpuscular Volume 100.5 fl (82-101); Nucleated Red Blood Cells % 0 %; Platelet Count 201 10^3/cmm (157-399); Red Blood Count 4.20 10^6/uL (3.85-5.65); White Blood Count 4.75 10^3/uL (3.29-11.43)
[2025-08-03 08:22] LABS: Glucose Urine UA Negative (Normal); Nitrate Urine Negative (Negative); Specific Gravity, Urine 1.021 (1.005-1.030)
[2025-08-03 08:27] LABS: Add Urine Microscopic? YES
[2025-08-03 08:49] LABS: Alanine Aminotransferase 19 U/L (0-41); Albumin Level 4.3 g/dL (3.5-5.2); Alkaline Phosphatase 97 U/L (40-130); Anion Gap 11.7 (5-19); Aspartate Amino Transferase 17 U/L (0-40); Blood Urea Nitrogen 22 mg/dL (8-23); Calcium 9.1 mg/dL (8.5-10.5); Carbon Dioxide 30 mmol/L (22-29); Chloride 107 mmol/L (98-107); Globulin 2.5 g/dL (1.3-4.6); Glucose 82 mg/dL (65-115); Osmolality Calculated 302 mOsm/kg (285-295); Potassium 3.7 mmol/L (3.5-5.1); Sodium 145 mmol/L (136-145); Total Protein 6.8 g/dL (6.6-8.7)
[2025-08-03] MEDS: dexamethasone 4 mg/mL INJ 5 mL 12 MG IVP (09:36)
[2025-08-03] MEDS: SODIUM CHLORIDE 0.9% IV (09:45)
[2025-08-03] MEDS: BEVACIZUMAB BVZR IV (09:45)
[2025-08-03] MEDS: atropine 1 mg/mL SDV 1 mL 0.4 MG IV (10:33)
[2025-08-03] MEDS: leucovorin 840 MG in dextrose 5% 250 ML 222.67 MG IV (10:49)
[2025-08-03] MEDS: fluorouraciL 50 mg/ml MDV 100 mL 750 MG IVP (12:36)
[2025-08-03] MEDS: fluorouraciL 4,550 MG in elastomeric pump 1 PUMP IV (12:38)
[2025-08-03 12:51] VITALS: BP 133/75; PULSE 61; TEMP 36.5; O2SAT 97
== END 2025-08-03 23:59 | disposition home or self-care (01) ==
PROVIDERS: Internal Medicine Medical Oncology; PCP Family Medicine; Visit Provider Nurse Practitioner Family
DX: Z51.11 Encounter for antineoplastic chemotherapy (principal); Z51.12 Encounter for antineoplastic immunotherapy; C18.2 Malignant neoplasm of ascending colon; C78.00 Secondary malignant neoplasm of unspecified lung; R03.0 Elevated blood-pressure reading, without diagnosis of hypertension; G47.00 Insomnia, unspecified; Z79.899 Other long term (current) drug therapy; Z79.52 Long term (current) use of systemic steroids; Z79.631 Long term (current) use of antimetabolite agent; Z87.891 Personal history of nicotine dependence
CPT/HCPCS: 80053; 81001; 82378; 85025; 96360; 96372; 96375; 96411; 96413; 96415; 96416; 96417; 96523; 99214; J0461; J0640; J1100; J2469; J7030; J7050; J7060; J9190; J9206; Q5101; Q5118

== ENCOUNTER 2025-08-12 08:05 | Oncology outpatient (recurring) (ONCR) | payer OTHER, MEDICARE, SELFPAY ==
[2025-08-07 12:20] VITALS: BP 110/64; PULSE 74; RESP 16; O2SAT 96
== END 2025-08-16 23:59 | disposition home or self-care (01) ==
PROVIDERS: PCP Family Medicine; Visit Provider Nurse Practitioner Family
DX: Z45.2 Encounter for adjustment and management of vascular access device; Z95.828 Presence of other vascular implants and grafts; Z53.9 Procedure and treatment not carried out, unspecified reason
CPT/HCPCS: 96372; 96523; Q5101

== ENCOUNTER 2025-08-31 08:13 | Oncology outpatient (recurring) (ONCR) | payer MEDICARE, OTHER, SELFPAY ==
[2025-08-17 08:37] LABS: Hematocrit 42.9 % (37-53); Hemoglobin 14.60 g/dL (11.27-16.99); Mean Corpuscular HGB Conc 34.0 g/dL (30-55); Mean Corpuscular Hemoglobin 34.8 pg (27-33); Mean Corpuscular Volume 102.1 fl (82-101); Nucleated Red Blood Cells % 0 %; Platelet Count 176 10^3/cmm (157-399); Red Blood Count 4.20 10^6/uL (3.85-5.65); White Blood Count 3.44 10^3/uL (3.29-11.43)
[2025-08-17 08:56] LABS: Glucose Urine UA Negative (Normal); Nitrate Urine Negative (Negative); Specific Gravity, Urine 1.023 (1.005-1.030)
[2025-08-17 08:59] LABS: Add Urine Microscopic? YES
[2025-08-17 09:05] LABS: Carcinoembryonic Antigen 3.9 ng/mL (0.0-4.7)
[2025-08-17 09:16] LABS: Alanine Aminotransferase 15 U/L (0-41); Albumin Level 4.1 g/dL (3.5-5.2); Alkaline Phosphatase 73 U/L (40-130); Anion Gap 12.8 (5-19); Aspartate Amino Transferase 20 U/L (0-40); Blood Urea Nitrogen 18 mg/dL (8-23); Calcium 9.0 mg/dL (8.5-10.5); Carbon Dioxide 28 mmol/L (22-29); Chloride 108 mmol/L (98-107); Globulin 2.0 g/dL (1.3-4.6); Glucose 91 mg/dL (65-115); Osmolality Calculated 301 mOsm/kg (285-295); Potassium 3.8 mmol/L (3.5-5.1); Sodium 145 mmol/L (136-145); Total Protein 6.1 g/dL (6.6-8.7)
[2025-08-17] MEDS: dexamethasone 4 mg/mL INJ 5 mL 12 MG IVP (11:12)
[2025-08-17] MEDS: atropine 1 mg/mL SDV 1 mL 0.4 MG IV (12:05)
[2025-08-17] MEDS: leucovorin 860 MG in dextrose 5% 250 ML 166.67 MG IV (12:12)
[2025-08-17] MEDS: IRINOTECAN IV (12:13)
[2025-08-17] MEDS: DEXTROSE 5% IV (12:13)
[2025-08-17] MEDS: fluorouraciL 4,600 MG in elastomeric pump 1 PUMP IV (13:58)
[2025-08-17] MEDS: fluorouraciL 50 mg/ml MDV 100 mL 800 MG IVP (13:58)
[2025-08-17 14:12] VITALS: BP 163/75; PULSE 53; TEMP 36.9; O2SAT 98
[2025-08-19 10:13] VITALS: BP 123/76; PULSE 57; RESP 17; TEMP 36.6; O2SAT 98
[2025-08-19 11:26] VITALS: BP 155/78; PULSE 46; RESP 17; TEMP 36.4; O2SAT 96
[2025-08-24 08:35] VITALS: BP 142/79; PULSE 84; RESP 16; TEMP 36.7; O2SAT 96
[2025-08-31 08:44] LABS: Hematocrit 41.7 % (37-53); Hemoglobin 13.90 g/dL (11.27-16.99); Mean Corpuscular HGB Conc 33.3 g/dL (30-55); Mean Corpuscular Hemoglobin 34.3 pg (27-33); Mean Corpuscular Volume 103.0 fl (82-101); Nucleated Red Blood Cells % 0 %; Platelet Count 150 10^3/cmm (157-399); Red Blood Count 4.05 10^6/uL (3.85-5.65); White Blood Count 3.14 10^3/uL (3.29-11.43)
[2025-08-31 08:53] LABS: Alanine Aminotransferase 17 U/L (0-41); Albumin Level 3.7 g/dL (3.5-5.2); Alkaline Phosphatase 67 U/L (40-130); Anion Gap 12.9 (5-19); Aspartate Amino Transferase 17 U/L (0-40); Blood Urea Nitrogen 23 mg/dL (8-23); Calcium 8.6 mg/dL (8.5-10.5); Carbon Dioxide 29 mmol/L (22-29); Chloride 108 mmol/L (98-107); Globulin 2.1 g/dL (1.3-4.6); Glucose 91 mg/dL (65-115); Osmolality Calculated 305 mOsm/kg (285-295); Potassium 3.9 mmol/L (3.5-5.1); Sodium 146 mmol/L (136-145); Total Protein 5.8 g/dL (6.6-8.7)
[2025-08-31 09:01] LABS: Glucose Urine UA Negative (Normal); Nitrate Urine Negative (Negative); Specific Gravity, Urine 1.024 (1.005-1.030)
[2025-08-31 09:06] LABS: Add Urine Microscopic? YES
[2025-08-31 09:29] VITALS: BP 176/84; PULSE 58; RESP 16; TEMP 36.9; O2SAT 97
[2025-08-31] MEDS: dexamethasone 4 mg/mL INJ 5 mL 12 MG IVP (10:36)
[2025-08-31] MEDS: atropine 1 mg/mL SDV 1 mL 0.4 MG IV (11:53)
[2025-08-31] MEDS: leucovorin 860 MG in dextrose 5% 250 ML 166.67 MG IV (12:12)
[2025-08-31] MEDS: IRINOTECAN IV (12:12)
[2025-08-31] MEDS: DEXTROSE 5% IV (12:12)
[2025-08-31] MEDS: ELASTOMERIC PUMP PUMP IV (14:00)
[2025-08-31] MEDS: FLUOROURACIL IV (14:00)
[2025-08-31] MEDS: fluorouraciL 50 mg/ml MDV 100 mL 770 MG IVP (14:00)
[2025-08-31] MEDS: SODIUM CHLORIDE IV (14:00)
[2025-08-31 16:11] VITALS: BP 168/72; PULSE 84; TEMP 36.5; O2SAT 98
[2025-09-01 09:23] LABS: Carcinoembryonic Antigen 4.2 ng/mL (0.0-4.7)
== END 2025-08-31 23:59 | disposition home or self-care (01) ==
PROVIDERS: Nurse Practitioner Family; PCP Family Medicine; Visit Provider Internal Medicine Medical Oncology
DX: Z53.9 Procedure and treatment not carried out, unspecified reason; Z51.11 Encounter for antineoplastic chemotherapy; Z51.12 Encounter for antineoplastic immunotherapy; C18.2 Malignant neoplasm of ascending colon; C78.00 Secondary malignant neoplasm of unspecified lung; R03.0 Elevated blood-pressure reading, without diagnosis of hypertension; R60.0 Localized edema; R23.3 Spontaneous ecchymoses; D70.9 Neutropenia, unspecified; M25.69 Stiffness of other specified joint, not elsewhere classified; Z79.899 Other long term (current) drug therapy; Z79.52 Long term (current) use of systemic steroids; Z79.631 Long term (current) use of antimetabolite agent; Z87.891 Personal history of nicotine dependence
CPT/HCPCS: 80053; 81001; 82378; 85025; 96360; 96372; 96375; 96411; 96413; 96415; 96416; 96417; 96523; 99214; J0461; J0640; J1100; J2469; J7030; J7040; J7050; J7060; J9190; J9206; Q5101; Q5118

== ENCOUNTER 2025-09-16 11:00 | Oncology outpatient (recurring) (ONCR) | payer MEDICARE, OTHER, SELFPAY ==
[2025-09-02 15:47] VITALS: BP 144/85; PULSE 68; RESP 17; TEMP 37.2; O2SAT 95
[2025-09-03 08:52] VITALS: RESP 16; TEMP 37.6; O2SAT 96
[2025-09-08 12:15] VITALS: BP 104/64; PULSE 78; RESP 17; TEMP 36.6; O2SAT 94
[2025-09-14 08:36] LABS: Hematocrit 43.8 % (37-53); Hemoglobin 14.80 g/dL (11.27-16.99); Mean Corpuscular HGB Conc 33.8 g/dL (30-55); Mean Corpuscular Hemoglobin 34.7 pg (27-33); Mean Corpuscular Volume 102.8 fl (82-101); Nucleated Red Blood Cells % 0 %; Platelet Count 265 10^3/cmm (157-399); Red Blood Count 4.26 10^6/uL (3.85-5.65); White Blood Count 4.79 10^3/uL (3.29-11.43)
[2025-09-14 08:42] LABS: Glucose Urine UA Negative (Normal); Nitrate Urine Negative (Negative); Specific Gravity, Urine 1.024 (1.005-1.030)
[2025-09-14 08:47] LABS: Add Urine Microscopic? YES
[2025-09-14 08:57] LABS: Alanine Aminotransferase 17 U/L (0-41); Albumin Level 3.8 g/dL (3.5-5.2); Alkaline Phosphatase 75 U/L (40-130); Anion Gap 12.8 (5-19); Aspartate Amino Transferase 20 U/L (0-40); Blood Urea Nitrogen 14 mg/dL (8-23); Calcium 8.9 mg/dL (8.5-10.5); Carbon Dioxide 27 mmol/L (22-29); Chloride 107 mmol/L (98-107); Globulin 2.2 g/dL (1.3-4.6); Glucose 96 mg/dL (65-115); Osmolality Calculated 296 mOsm/kg (285-295); Potassium 3.8 mmol/L (3.5-5.1); Sodium 143 mmol/L (136-145); Total Protein 6.0 g/dL (6.6-8.7)
[2025-09-14] MEDS: dexamethasone 4 mg/mL INJ 5 mL 12 MG IVP (09:33)
[2025-09-14] MEDS: atropine 1 mg/mL SDV 1 mL 0.4 MG IV (10:39)
[2025-09-14] MEDS: leucovorin 840 MG in dextrose 5% 250 ML 166.67 MG IV (10:51)
[2025-09-14] MEDS: fluorouraciL 50 mg/ml MDV 100 mL 750 MG IVP (12:53)
[2025-09-14] MEDS: fluorouraciL 4,550 MG in elastomeric pump 1 PUMP IV (13:00)
[2025-09-14 13:18] VITALS: BP 143/74; PULSE 58; RESP 17; TEMP 36; O2SAT 96
[2025-09-14 20:57] LABS: Carcinoembryonic Antigen 3.5 ng/mL (0.0-4.7)
== END 2025-09-16 23:59 | disposition home or self-care (01) ==
PROVIDERS: Nurse Practitioner Family; PCP Family Medicine; Visit Provider Internal Medicine Medical Oncology
DX: Z45.1 Encounter for adjustment and management of infusion pump (principal); Z95.828 Presence of other vascular implants and grafts
CPT/HCPCS: 80053; 81001; 82378; 85025; 87400; 96360; 96366; 96368; 96372; 96375; 96411; 96413; 96415; 96416; 96417; 96523; 99214; J0461; J0640; J1100; J2469; J7030; J7050; J7060; J9190; J9206; Q5101; Q5118